=== PATIENT | male | born 1955 | race Caucasian/White ===

== ENCOUNTER → 2016-07-29 | Outpatient (CLI) | payer BC | LOC: RAD 09:54 | PROVIDERS: ATTEND Specialist | DX: C61 Malignant neoplasm of prostate (principal); J44.9 Chronic obstructive pulmonary disease, unspecified | CPT/HCPCS: 71260; 74177 ==

== ENCOUNTER 2016-08-03 11:24 | Emergency (ER) | payer BC ==
[2016-08-03 11:37] VITALS: BP 119/65
--- NOTE | 2016-08-03 11:42 | ER Document Report ---
ED Medical Screen (RME) - General Stated Complaint: LEFT ARM PAIN Mode of Arrival: Ambulatory Information source: Patient Notes: Patient complains of left upper extremity pain for the past 2 days. Patient denies any chest pain, coughing, or cold symptoms. Patient denies any injury to left upper extremity. hx: Hypertension, with stenting I have greeted and performed a rapid initial assessment of this patient. A comprehensive ED assessment and evaluation of the patient, analysis of test results and completion of the medical decision making process will be conducted by additional ED providers. TRAVEL OUTSIDE OF THE [place] IN LAST 30 DAYS: No - Related Data Allergies/Adverse Reactions: Penicillins Allergy (Verified 08/03/16 11:37) Past Medical History - Past Medical History Cardiac Medical History: Reports: Hx Coronary Artery Disease, Hx Hypertension Pulmonary Medical History: Reports: Hx COPD Neurological Medical History: Denies: Hx Seizures Malignancy Medical History: Reports Hx Prostate Cancer - Prostate cancer discovered last year, currently in observation status only GI Medical History: Reports: Hx Gastroesophageal Reflux Disease Past Surgical History: Reports: Hx Orthopedic Surgery - R knee, R wrist, Hx Tonsillectomy - Immunizations Immunizations up to date: Yes Hx Diphtheria, Pertussis, Tetanus Vaccination: Yes Physical Exam - Vital signs Vitals: Temp Pulse Resp BP 98.0 F 74 22 H 119/65 08/03/16 11:35 08/03/16 11:35 08/03/16 11:35 08/03/16 11:35 - Extremities General upper extremity: Tender - Left upper extremity Course - Vital Signs Vital signs: Temp Pulse Resp BP Pulse Ox 98.0 F 74 22 H 119/65 08/03/16 11:35 08/03/16 11:35 08/03/16 11:35 08/03/16 11:35
--- NOTE | 2016-08-03 13:12 | ER Document Report ---
ED General - General Chief Complaint: Arm Pain Stated Complaint: LEFT ARM PAIN Time seen by provider: 13:07 Mode of Arrival: Ambulatory Information source: Patient Notes: 60-year-old male with 2 day history of intermittent pain numbness and weakness involving the left wrist and hand. He denies history of injury. He denies prior history of symptoms like this. He denies any pain numbness or weakness proximal to the wrist. Reports an occasional burning sensation to the ulnar side of the left forearm over the past 2 days as well. The patient reports having had an LAD stent placed this past summer and has had chest pain shortness breath and dyspnea on exertion since November. He doesn't think the stent placement change that but those symptoms have not worsened recently and are not bothering him at the moment. He reports he is supposed to have a repeat cardiac catheterization in [place] with Dr. Bernal in 3 days because of his persistent chest pain and shortness of breath. He denies fever, chills, nausea , vomiting, diaphoresis, hematemesis, hematochezia, melena, dysuria, abdominal pain, or back pain. He denies any pain to the neck. He denies any pain numbness weakness to his other extremities. Patient reports this appearance of swelling to the left wrist and hand compared to the right it's also been present for 2 days Physical Exam: General: Alert, appears well. HEENT: Normocephalic. Atraumatic. PERRLA. Extraocular movements intact. Oropharynx clear. Neck: Supple. Non-tender. Good range of motion without discomfort palpation neck does not produce any discomfort Respiratory: No respiratory distress. Clear and equal breath sounds bilaterally. Nontender to palpation Cardiovascular: Regular rate and rhythm. Abdominal: Normal Inspection. Soft, non-tender. No distension. Normal Bowel Sounds. Back: Non-tender. No deformity or step off. Extremities: Moves all four extremities. Right upper extremity unremarkable. Left upper extremity has full active range of motion in all joints. Range of motion testing at the shoulder and elbow does not produce any discomfort. Patient has superficial ecchymoses diffusely to both upper extremities there is no palpable deformity or tenderness in the area of the left forearm wrist or hand. Patient reports decreased light touch sensation in all 5 fingers and thumb brisk cap refill is present all fingers and he has 2+ radial and ulnar pulses Lower extremities warm 2+ pulses of cyanosis no edema no Homans sign Neurological: Mentating clearly speech clear clinical account liaison strength 4 out of 5 to the left upper extremity compared to 5 out of 5 on the right but motor function to the left upper extremity proximal to the wrist is 5 out of 5. Both lower extremities are 5 out of 5 and equal bilaterally he reports decreased light touch sensation diffusely to the hand and wrist compared to the right but no decreased sensation proximal to that. Psychological: Normal affect. Normal Mood. Skin: Warm. Dry. Normal color. TRAVEL OUTSIDE OF THE [place] IN LAST 30 DAYS: No - Related Data Allergies/Adverse Reactions: Penicillins Allergy (Verified 08/03/16 11:37) Past Medical History - General Information source: Patient - Social History Smoking Status: Never Smoker Chew tobacco use (# tins/day): No Frequency of alcohol use: None Drug Abuse: None Family History: CAD Patient has suicidal ideation: No Patient has homicidal ideation: No - Past Medical History Cardiac Medical History: Reports: Hx Coronary Artery Disease, Hx Hypertension Pulmonary Medical History: Reports: Hx COPD Neurological Medical History: Denies: Hx Seizures Renal/ Medical History: Denies: Hx Peritoneal Dialysis Malignancy Medical History: Reports Hx Prostate Cancer - Prostate cancer discovered last year, currently in observation status only GI Medical History: Reports: Hx Gastroesophageal Reflux Disease Past Surgical History: Reports: Hx Orthopedic Surgery - R knee, R wrist, Hx Tonsillectomy - Immunizations Immunizations up to date: Yes Hx Diphtheria, Pertussis, Tetanus Vaccination: Yes Review of Systems - Review of Systems Constitutional: See HPI EENT: denies: Ear pain, Throat pain Cardiovascular: See HPI Respiratory: See HPI Gastrointestinal: See HPI Genitourinary: denies: Burning, Dysuria Musculoskeletal: denies: Back pain, Muscle pain Hematologic/Lymphatic: denies: Swollen glands Neurological/Psychological: See HPI Physical Exam - Vital signs Vitals: Temp Pulse Resp BP 98.0 F 74 22 H 119/65 08/03/16 11:35 08/03/16 11:35 08/03/16 11:35 08/03/16 11:35 Course - Re-evaluation Re-evalutation: 08/03/16 14:50 Patient had an examination most consistent with a peripheral neuropathy and noted for vascular compromise to the left upper extremity. He is also claimed that chest pain or shortness of breath but reports those are not new or different symptoms and is already scheduled to have follow-up catheterization with heart center in [place] in 3 days. I did not believe he requires admission for cardiac etiologies or for his left hand discomfort but prior to obtaining blood tests or discussion with him about the above findings the patient chose to leave the emergency department. The patient at time of evaluation by this provider was alert mentating clearly incompetent to choose to refuse further care and had no grounds to hold him against his will to allow discussion of his findings. - Vital Signs Vital signs: Temp Pulse Resp BP Pulse Ox 98.0 F 74 23 H 119/65 96 08/03/16 11:35 08/03/16 11:35 08/03/16 13:12 08/03/16 11:35 08/03/16 13:12 - Diagnostic Test Radiology reviewed: Image reviewed, Reports reviewed Radiology results interpreted by me: 08/03/16 14:50 Venous Doppler read as negative for DVT to left upper extremity - EKG Interpretation by Me Additional EKG results interpreted by me: 08/03/16 13:11 EKG reviewed by myself sinus rhythm at 69 no acute changes no significant change from 04/30/2016 08/03/16 14:49 Discharge - Discharge Clinical Impression: Coronary artery disease Qualifiers: Coronary Disease-Associated Artery/Lesion type: unspecified vessel or lesion type [place] vs. transplanted heart: [place] heart Associated angina: angina presence unspecified Qualified Code(s): I25.10 - Atherosclerotic heart disease of [place] coronary artery without angina pectoris Peripheral neuropathy Qualifiers: Peripheral neuropathy type: mononeuropathy, unspecified Qualified Code(s): G58.9 - Mononeuropathy, unspecified Disposition: ELOPED
--- NOTE | 2016-08-03 16:28 | EKG REPORT ---
SEVERITY:- NORMAL ECG - SINUS RHYTHM : Confirmed by: Derick Cloud MD 03-Aug-2016 16:28:01
== END 2016-08-03 13:55 | disposition left against medical advice (07) ==
LOC: ER 11:24
DX: I25.10 Atherosclerotic heart disease of native coronary artery without angina pectoris (principal); M79.602 Pain in left arm; I10 Essential (primary) hypertension; J44.9 Chronic obstructive pulmonary disease, unspecified; C61 Malignant neoplasm of prostate; K21.9 Gastro-esophageal reflux disease without esophagitis
CPT/HCPCS: 71020; 93005; 93010; 93971; 99281

== ENCOUNTER → 2017-01-31 | Outpatient (CLI) | payer BC ==
--- NOTE | 2017-01-31 11:51 | RADIOLOGY REPORT (SQ) ---
EXAM DESCRIPTION: CHEST PA/LAT COMPLETED DATE/TIME: 01/31/2017 10:27 am REASON FOR STUDY: CHEST PAIN, UNSPECIFIED COMPARISON: 08/03/2016 NUMBER OF VIEWS: Two view. TECHNIQUE: Frontal and lateral radiographic views of the chest acquired. LIMITATIONS: None. FINDINGS: LUNGS AND PLEURA: Hyperinflation most likely related to COPD. MEDIASTINUM AND HILAR STRUCTURES: No masses or contour abnormalities. HEART AND VASCULATURE: Heart normal size. No evidence for failure. BONY STRUCTURES: No acute findings. HARDWARE: school bus monitor device superimpose with the left upper chest. OTHER: No other significant finding. IMPRESSION: No acute findings. Hyperinflation possibly related to COPD. TECHNICAL DOCUMENTATION: JOB ID: [id number] [employer]- All Rights Reserved
== END ==
LOC: RAD 10:18
PROVIDERS: ATTEND Physician Assistant
DX: R07.9 Chest pain, unspecified (principal)
CPT/HCPCS: 71020

== ENCOUNTER 2017-03-08 12:58 | Emergency (ER) | payer OTHER, BC ==
[2017-03-08] MEDS ORDERED: DIPH/PERTUSS(ACELL)/TETANUS VAC/PF 0.5 ML SYR (>=10YO) IM ONE (13:30)
--- NOTE | 2017-03-08 13:32 | ER Document Report ---
ED Medical Screen (RME) - General Chief Complaint: Fall Injury Stated Complaint: LEFT HAND INJURY Time Seen by Provider: 03/08/17 13:28 Notes: Patient states he is trying to open the mata on his truck when he fell backwards. In the fall he injured his left hand left shoulder and his right inguinal area. He denies a loss of consciousness. He is unsure when his last tetanus was. TRAVEL OUTSIDE OF THE [place] IN LAST 30 DAYS: No - Related Data Allergies/Adverse Reactions: Penicillins Allergy (Verified 03/08/17 13:20) Past Medical History - Past Medical History Cardiac Medical History: Reports: Hx Coronary Artery Disease, Hx Hypertension Pulmonary Medical History: Reports: Hx COPD Neurological Medical History: Denies: Hx Seizures Renal/ Medical History: Denies: Hx Peritoneal Dialysis Malignancy Medical History: Reports Hx Prostate Cancer - Prostate cancer discovered last year, currently in observation status only GI Medical History: Reports: Hx Gastroesophageal Reflux Disease Past Surgical History: Reports: Hx Orthopedic Surgery - R knee, R wrist, Hx Tonsillectomy - Immunizations Immunizations up to date: Yes Hx Diphtheria, Pertussis, Tetanus Vaccination: Yes Physical Exam - Vital signs Vitals: Temp Pulse Resp BP Pulse Ox 98.3 F 91 16 143/90 H 97 03/08/17 13:09 03/08/17 13:09 03/08/17 13:09 03/08/17 13:09 03/08/17 13:09 Course - Vital Signs Vital signs: Temp Pulse Resp BP Pulse Ox 98.3 F 91 16 143/90 H 97 03/08/17 13:09 03/08/17 13:09 03/08/17 13:09 03/08/17 13:09 03/08/17 13:09
[2017-03-08] MEDS ORDERED: LIDOCAINE 1% INJ-PF (10 MG/ML) 30 ML SDV INJ ONE (14:04)
--- NOTE | 2017-03-08 14:10 | ER Document Report ---
ED Fall - General Chief Complaint: Fall Injury Stated Complaint: LEFT HAND INJURY Time Seen by Provider: 03/08/17 13:28 Mode of Arrival: Ambulatory Information source: Patient Notes: 61-year-old male presents to ED for pain in his right groin left shoulder and left hand after he tried to open his truck door and fell backwards landing on the gravel. He denies any loss of consciousness. He is unsure of his last tetanus shot and one was ordered in pit area. TRAVEL OUTSIDE OF THE [place] IN LAST 30 DAYS: No - HPI Occurred: Just prior to arrival Context: Tripped Associated symptoms: None Location of injury/pain: Hand, Hip, Shoulder Quality of pain: Sharp Severity: Moderate Pain Level: 3 - Related data Allergies/Adverse Reactions: Penicillins Allergy (Verified 03/08/17 13:20) Past Medical History - General Information source: Patient - Social History Smoking Status: Former Smoker Cigarette use (# per day): No Chew tobacco use (# tins/day): No Smoking Education Provided: No Frequency of alcohol use: Occasional Drug Abuse: None Occupation: driver/refuse collector Lives with: Spouse/Significant other Family History: CAD, CVA, DM, Hyperlipidemia, Hypertension, Malignancy Patient has suicidal ideation: No Patient has homicidal ideation: No - Past Medical History Cardiac Medical History: Reports: Hx Coronary Artery Disease, Hx Hypertension Pulmonary Medical History: Reports: Hx Bronchitis, Hx COPD EENT Medical History: Reports: None Neurological Medical History: Reports: None Endocrine Medical History: Reports: None Renal/ Medical History: Reports: None Malignancy Medical History: Reports Hx Prostate Cancer - Prostate cancer discovered last year, currently in observation status only GI Medical History: Reports: Hx Diverticulitis, Hx Gastroesophageal Reflux Disease, Hx Colonoscopy, Hx Endoscopy Musculoskeltal Medical History: Reports Hx Arthritis, Reports Hx Musculoskeletal Deformity, Reports Hx Musculoskeletal Trauma Skin Medical History: Reports None Psychiatric Medical History: Reports: None Traumatic Medical History: Reports: None Infectious Medical History: Reports: None Past Surgical History: Reports: Hx Orthopedic Surgery - R knee torn ligaments and meniscus, R wrist ganglion cyst, Hx Tonsillectomy - Immunizations Immunizations up to date: Yes Hx Diphtheria, Pertussis, Tetanus Vaccination: Yes - 03/08/17 Review of Systems - Review of Systems Constitutional: No symptoms reported EENT: No symptoms reported Cardiovascular: No symptoms reported Respiratory: No symptoms reported Gastrointestinal: No symptoms reported Genitourinary: No symptoms reported Male Genitourinary: No symptoms reported Musculoskeletal: No symptoms reported Skin: No symptoms reported Hematologic/Lymphatic: No symptoms reported Neurological/Psychological: No symptoms reported -: Yes All other systems reviewed and negative Physical Exam - Vital signs Vitals: Temp Pulse Resp BP Pulse Ox 98.3 F 91 16 143/90 H 97 03/08/17 13:09 03/08/17 13:09 03/08/17 13:09 03/08/17 13:09 03/08/17 13:09 Interpretation: Normal - General General appearance: Appears well, Alert - HEENT Head: Normocephalic, Atraumatic Eyes: Normal Pupils: PERRL - Respiratory Respiratory status: No respiratory distress Chest status: Nontender Breath sounds: Normal Chest palpation: Normal - Cardiovascular Rhythm: Regular Heart sounds: Normal auscultation Murmur: No - Abdominal Inspection: Normal Distension: No distension Bowel sounds: Normal Tenderness: Tender - right lower quadrant tender to palpation. No peritoneal signs Organomegaly: No organomegaly. No: Hepatomegaly, Splenomegaly, Mass - Back Back: Normal, Nontender - Extremities General upper extremity: Normal color, Normal temperature General lower extremity: Normal inspection, Normal color, Normal temperature, Normal weight bearing. No: Ramiro's sign Shoulder: Tender, Limited ROM - pain with range of motion Hand: Laceration - left hand, No evidence of human bite, No evidence of FB Hip: Tender, Pain with ROM. No: Unable to bear weight Thigh: Tender - Neurological Neuro grossly intact: Yes Cognition: Normal Orientation: AAOx4 Cesario Coma Scale Eye Opening: Spontaneous [place]ario Coma Scale Verbal: Oriented [place] Coma Scale Motor: Obeys Commands Cesario Coma Scale Total: 15 Speech: Normal Motor strength normal: LUE, RUE, LLE, RLE Sensory: Normal - Psychological Associated symptoms: Normal affect, Normal mood - Skin Skin Temperature: Warm Skin Moisture: Dry Skin Color: Normal Course - Re-evaluation Re-evalutation: 03/08/17 18:42 Discussed assessment and history with Dr Montenegro after suturing his hands the patient developed worse pain in his right thigh and abdomen pelvis when trying to sit. Dr. Montenegro came over and assessed the patient and stated that she get a CT abdomen pelvis with IV contrast this was completed. No acute injuries noted on the CT but the appendix was not visualized and patient's tenderness is to the right lower quadrant. He also had a slight elevation in his WBCs. I had the doctor come and reevaluate the patient due to these findings. Dr Montenegro stated that it would be okay to send the patient home he reviewed signs and symptoms of appendicitis and what to return to the ED for. Will discharge patient home with a prescription for Percocet due to pain. Patient was treated with ibuprofen in the ED his fingers were sutured and a sling was applied to his left shoulder. Patient to follow-up with orthopedics. - Vital Signs Vital signs: Temp Pulse Resp BP Pulse Ox 97.7 F 65 16 128/71 H 97 03/08/17 18:23 03/08/17 18:23 03/08/17 18:23 03/08/17 18:23 03/08/17 18:23 - Laboratory Result Diagrams: 03/08/17 16:20 03/08/17 16:20 Laboratory results interpreted by me: 03/08/17 03/08/17 16:20 16:20 WBC 13.5 H RDW 15.5 H Seg Neutrophils % 82.4 H Lymphocytes % 10.9 L Absolute Neutrophils 11.1 H BUN 23 H Glucose 134 H - Diagnostic Test Radiology reviewed: Image reviewed, Reports reviewed Procedures - Immobilization Left Shoulder Time completed: 18:49 Immobilizer type: Sling Performed by: PCT Post-Proc Neuro Vasc Exam: Normal Alignment checked and good: Yes - Laceration/Wound Repair Left Finger 3rd digit Wound length (cm): 4 Wound's Depth, Shape: Irregular, Flap Laceration pre-procedure: Sterile PPE donned, Sterile drapes applied, Other - surgical scrub Anesthetic type: 1% Lidocaine Volume Anesthetic (mLs): 4 Wound explored: Contaminated, Foreign body removed Irrigated w/ Saline (mLs): 250 Wound Repaired With: Sutures Suture Size/Type: 4:0, Ethilon Number of Sutures: 6 Layer Closure?: No Post-procedure wound care: Sterile dressing applied Post-procedure NV exam normal: Yes Complications: No Left Finger 4th digit Wound length (cm): 5 Wound's Depth, Shape: Irregular, Flap Laceration pre-procedure: Sterile PPE donned, Sterile drapes applied, Other - surgical scrub Anesthetic type: 1% Lidocaine Volume Anesthetic (mLs): 4 Wound explored: Contaminated, Foreign body removed Irrigated w/ Saline (mLs): 250 Wound Repaired With: Sutures Suture Size/Type: 4:0, Ethilon Number of Sutures: 6 Layer Closure?: No Post-procedure wound care: Sterile dressing applied Post-procedure NV exam normal: Yes Complications: No Discharge - Discharge Clinical Impression: Right groin pain, laceration left 3rd finger, laceration 4th left finger, Right lower quadrant abdominal pain Fall Qualifiers: Encounter type: initial encounter Qualified Code(s): W19.XXXA - Unspecified fall, initial encounter Injury of left shoulder Qualifiers: Encounter type: initial encounter Qualified Code(s): S49.92XA - Unspecified injury of left shoulder and upper arm, initial encounter Condition: Stable Disposition: HOME, SELF-CARE Instructions: Observation for Appendicitis (OM) Additional Instructions: MUSCLE STRAIN: You have strained a muscle -- torn the fibers within the muscle. This often occurs with strenuous exertion, or during an injury that suddenly stretches the muscle. The seriousness of a strain varies. Some strains heal within days, others cause problems for months. X-rays cannot show a muscle strain. X-rays are taken only if symptoms suggest that a fracture could be present. The usual treatment of a muscle strain is rest and ice packs. Sometimes, a sling, splint, or crutches may be necessary to rest the muscle. The muscle can be used again once pain subsides. Severe strains require a special exercise and stretching program to prevent permanent stiffness and disability. Your doctor will advise you if this will be necessary. Call the doctor immediately if pain or swelling becomes severe, or if numbness or discoloration develop. Shoulder Injury You have injured your shoulder. This usually results from stretching or tearing of the tendons during trauma. Time and protection are required in order to heal properly. Many injuries are quite disabling, and should be taken seriously. Initial treatment includes cold packs and a sling to rest the shoulder. The physician has assessed the seriousness of your injury, and has outlined a treatment plan. Understand that this treatment may change, depending on how you progress. If a re-examination was recommended, it is important that you follow up as instructed. Some shoulder injuries (such as partial tear of the rotator cuff) are only suspected after you've failed to improve. Call us if there's severe pain, numbness, or loss of function. Hand Laceration A laceration on the hand can present special problems. It may be difficult to keep the wound dry. Motion of the fingers can disturb the healing edges. Your work may involve exposure to damaging chemicals or water. Keep the wound clean and dry. If you can't keep the cut dry, undisturbed, and free of chemical exposure, please discuss this with the doctor. If any water or chemical gets onto the dressing, remove it, blot the wound dry, then apply a fresh bandage. Dressings should be changed every day. If you feel the stitches pulling as you move the hand, a splint or other form of protection is needed. If any signs of infection occur (swelling, redness, increasing tenderness, red streaks, tender lumps in the armpit, or fever), see the doctor immediately. CONTUSION: Your injury has resulted in a contusion -- a crushing of the deep tissues. No injury to important structures was detected during the physician's exam. Contusions vary in the amount of pain they cause, and in the length of time required for healing. Typically, the area will become bruised, and will remain painful to touch for two or three weeks. However, most patients are back to working and playing within a few days. After the initial period of rest and cold-packs, your symptoms (together with the doctor's recommendations) will determine how rapidly you can get back to full activity. Usually this means "do what feels okay, but don't do things that hurt." If re-examination was recommended, it's important to follow up as instructed. Call the doctor or return any time if pain increases, if swelling becomes severe, if you develop numbness or weakness in an injured extremity, or if any other alarming symptoms occur. LOW BACK PAIN: Three out of every four people will have an episode of disabling back pain during their lifetime. Most commonly the pain is due to straining of the muscles and ligaments in the low back. Usual treatment includes: (1) Rest on a firm surface. Avoid lying on your stomach. (2) Ice pack the painful area. After a few days, gentle heat may be used intermittently to relax the area, or ice packs can be continued. (3) Medication may be needed -- muscle relaxers and antiinflammatory medicines are commonly used. (4) As the back improves, exercises are prescribed to strengthen the back and abdominal muscles. Your doctor will advise you on the proper care for your back at each stage in your recovery. You may be better in a few days -- or healing may take several weeks. If new symptoms of a "herniated disc" (radiation of pain, numbness, or tingling down the back of the leg or weakness in the leg) occur, you should be re-examined. Further testing may be necessary. USE OF TYLENOL (ACETAMINOPHEN): Acetaminophen may be taken for pain relief or fever control. It's much safer than aspirin, offering a wider range of "safe" dosages. It is safe during . Some brand names are Tylenol, Panadol, Datril, Anacin 3, Tempra, and Liquiprin. Acetaminophen can be repeated every four hours. The following are maximum recommended dosages: WEIGHT Dose Drops Elixir Chewable( 80mg) (LBS.) drprs=droppers tsp=teaspoon 6 40 mg 0.4 ml (1/2) 6-11 80 mg 0.8 ml (full) tsp 1 tab 12-16 120 mg 1 1/2 drprs 3/4 tsp 1 1/2 tabs 17-23 160 mg 2 drprs 1 tsp 2 tabs 24-30 240 mg 3 drprs 1 1/2 tsp 3 tabs 30-35 320 mg 2 tsp 4 tabs 36-41 360 mg 2 1/4 tsp 4 1/2 tabs 42-47 400 mg 2 1/2 tsp 5 tabs 48-53 480 mg 3 tsp 6 tabs 54-59 520 mg 3 1/4 tsp 6 1/2 tabs 60-64 560 mg 3 1/2 tsp 7 tabs 65-70 600 mg 3 3/4 tsp 7 1/2 tabs 71-76 640 mg 4 tsp 8 tabs 77-82 720 mg 4 1/2 tsp 9 tabs 83-88 800 mg 5 tsp 10 tabs >89 pounds or adults 650 mg to 900 mg Acetaminophen can be repeated every four hours. Maximum dose not to exceed 4000 mg a day. These maximum recommended dosages are slightly higher than the dosages written on the product container, but these dosages are very safe and below the toxic dosage for acetaminophen. TETANUS IMMUNIZATION GIVEN: You have been given an immunization against tetanus. Please record this in your records. In general, a booster is needed only once every 10 years. The tetanus shot protects against tetanus or "lockjaw," which is a complication of certain wound infections (the tetanus shot cannot protect against the actual infection). The immunization site may become warm and red due to local reaction. If this occurs, apply warm compresses and take aspirin or ibuprofen to reduce inflammation and discomfort. Return for evaluation if the reaction becomes severe. ICE PACKS: Apply ice packs frequently against the painful area. Many different schedules are recommended, such as "20 minutes on, 20 minutes off" or "one hour ice, two hours rest." If you need to work, you may need to go longer between ice treatments. You should plan to have the area ice packed AT LEAST one fourth of the time. The ice should be applied over the wrap, tape, or splint, or over a layer of cloth -- not directly against the skin. Some ice bags have a built-in cloth and can be put directly on the skin. WARM PACKS: After approximately two days, apply gentle heat (such as a heating pad or hot water bottle) for about 20 to 30 minutes about every two hours -- at least four times daily. Warmth and elevation will help you make a more rapid recovery , and will ease the pain considerably. Do not use HOT heat, and never apply heat for longer than 30 minutes. The continuous heat can invisibly damage skin and muscles -- even when no burn is seen on the surface. Damaged muscles can make you MORE sore. ORAL NARCOTIC MEDICATION: You have been given a prescription for pain control. This medication is a narcotic. It's best taken with food, as nausea can result if taken on an empty stomach. Don't operate machinery or drive within six hours of taking this medication. Do not combine this medicine with alcohol, or with any medication which can cause sedation (such as cold tablets or sleeping pills) unless you get permission from the physician. Narcotics tend to cause constipation. If possible, drink plenty of fluids and eat a diet high in fiber and fruits. SOAP CLEANSING: Gently wash the wound daily using a mild soap (like Ivory, Phisoderm, Neutrogena). Use warm water, rubbing gently until all debris, ooze, and crusting have been washed from the wound. Allow to dry briefly (about 10 minutes) after cleaning. Repeat this cleansing at least three times a day for the first two days and then once or twice a day. ANTIBIOTIC OINTMENT PROTECTION: Your wounds are such that dressing them is not practical or optional. After cleansing, you should apply a thin coating of antibiotic ointment ( Bacitracin, not Neosporin) to the wounds at least three times daily. This lessens infection risk, and may decrease the amount of scarring. Use a q-tip or dull butter knife, not your finger, to apply this ointment. Any debris or ooze which builds up in the ointment should be gently rubbed off with a sterile gauze pad. Harder crusting may need to be gently scrubbed off with a clean wash cloth with soap and warm water, perhaps applying a warm, wet wash cloth to the wound for ten minutes first. Development of redness, severe itching, or blistering may mean allergy to the ointment. See the doctor. Cephalexin The antibiotic you've been prescribed is a member of the cephalosporin class. This type of antibiotic covers a wide variety of infections, including those of the skin, lungs, and urinary tract. It's useful for staph infections. This antibiotic is slightly similar to the penicillin family. In rare cases , a person who is allergic to penicillin will also be allergic to this medication. If you have had a severe allergic reaction to penicillin, and have not taken this antibiotic since that time, notify your doctor. Antibiotics which cover many germs ("broad spectrum" antibiotics) are more likely to cause diarrhea or "yeast" infections. Women prone to vaginal yeast problems may suffer an attack after taking this antibiotic. In infants, oral thrush (white spots "stuck" on the cheek) or yeast diaper rash may result. See your doctor if these problems occur. Call at once if you develop itching, hives , shortness of breath, or lightheadedness. ORAL NARCOTIC MEDICATION: You have been given a prescription for pain control. This medication is a narcotic. It's best taken with food, as nausea can result if taken on an empty stomach. Don't operate machinery or drive within six hours of taking this medication. Do not combine this medicine with alcohol, or with any medication which can cause sedation (such as cold tablets or sleeping pills) unless you get permission from the physician. Narcotics tend to cause constipation. If possible, drink plenty of fluids and eat a diet high in fiber and fruits. FOLLOW-UP CARE: Please return in _3____ days for an infection check and dressing change. Your sutures should be removed in __8___ days. To facilitate a timely removal of your sutures, you may return to the Emergency Department at [facility]. You do not need to call for an appointment, but the best time to come in for suture removal is early in the morning. If you have been referred to another physician for follow-up care, call that physicians office for an appointment as you were instructed. If you experience a significant change in your laceration, or if you are concerned there may be an infection (swelling, redness, drainage, increasing tenderness, red streaks, tender lumps in the armpit or groin above the laceration, or fever) , return to the Emergency Department immediately re-evaluation. Prescriptions: Oxycodone HCl/Acetaminophen [Percocet 5-325 mg Tablet] 1 tab PO Q6HP PRN #15 tablet PRN Reason: Cephalexin Monohydrate [Keflex 500 mg Capsule] 500 mg PO Q6H 5 Days capsule Forms: Elevated Blood Pressure, Return to Work Referrals: SANIYA MENDEZ PA-C [Primary Care Provider] - Follow up as needed STACEY CALLAWAY MD [ACTIVE STAFF] - Follow up as needed
--- NOTE | 2017-03-08 14:43 | RADIOLOGY REPORT (SQ) ---
EXAM DESCRIPTION: HAND LEFT 3 VIEWS COMPLETED DATE/TIME: 03/08/2017 2:28 pm REASON FOR STUDY: fall/pain COMPARISON: None. EXAM PARAMETERS: NUMBER OF VIEWS: Three views. TECHNIQUE: AP, lateral and oblique radiographic images acquired of the left hand. LIMITATIONS: None. FINDINGS: MINERALIZATION: Normal. BONES: No acute fracture or dislocation. No worrisome bone lesions. JOINTS: No effusions. SOFT TISSUES: Foreign bodies along the pad of the distal phalanx of the 4th digit in the area of the laceration. There is also a metallic foreign body at the level of the 5th metacarpal, surface. Retu rn body along the pad of the 3rd distal phalanx. OTHER: No other significant finding. IMPRESSION: Multiples radiodensities in or on soft tissues including the distal 3rd and 4th phalange al pads and palmar surface of the 5th metacarpal. No fracture. TECHNICAL DOCUMENTATION: JOB ID: [id number] [employer]- All Rights Reserved
--- NOTE | 2017-03-08 14:43 | RADIOLOGY REPORT (SQ) ---
EXAM DESCRIPTION: PELVIS AP COMPLETED DATE/TIME: 03/08/2017 2:28 pm REASON FOR STUDY: fall/pain COMPARISON: None. NUMBER OF VIEWS: One view TECHNIQUE: AP Pelvis LIMITATIONS: None. FINDINGS: MINERALIZATION: Normal. HIPS: No acute fracture or dislocation. No worrisome bone lesions. PELVIS AND SACRUM: No acute fracture or dislocation. No worrisome bone lesions. PUBIS AND ISCHIUM: No acute fracture. LOWER LUMBAR SPINE: No significant findings as visualized. SOFT TISSUES: No findings. OTHER: No other significant finding. IMPRESSION: NEGATIVE STUDY OF THE PELVIS. TECHNICAL DOCUMENTATION: JOB ID: [id number] [employer]- All Rights Reserved
--- NOTE | 2017-03-08 14:44 | RADIOLOGY REPORT (SQ) ---
EXAM DESCRIPTION: SHOULDER LEFT 2 OR MORE VIEWS COMPLETED DATE/TIME: 03/08/2017 2:28 pm REASON FOR STUDY: fall/pain COMPARISON: None. NUMBER OF VIEWS: Three views. TECHNIQUE: Internal rotation, external rotation, and Y view images acquired of the left shoulder. LIMITATIONS: None. FINDINGS: MINERALIZATION: Normal. BONES: No acute fracture or dislocation. No worrisome bone lesions. Cystic degenerative changes hum eral head. JOINTS: No dislocation. VISUALIZED LUNGS AND RIBS: No pneumothorax. No rib fracture. SOFT TISSUES: No radiopaque foreign body. OTHER: No other significant finding. IMPRESSION: NEGATIVE STUDY OF THE LEFT SHOULDER. NO RADIOGRAPHIC EVIDENCE OF ACUTE INJURY. TECHNICAL DOCUMENTATION: JOB ID: [id number] [employer]- All Rights Reserved
[2017-03-08] MEDS ORDERED: IBUPROFEN 800 MG TABLET PO ONE (14:48)
[2017-03-08 16:38] LABS: ABSOLUTE BASOPHILS # (AUTO) 0.1 10^3/uL (0.0-0.2); ABSOLUTE LYMPHOCYTES (AUTO) 1.5 10^3/uL (0.5-4.7); ABSOLUTE MONOCYTES (AUTO) 0.7 10^3/uL (0.1-1.4); ABSOLUTE NEUT (AUTO) 11.1 10^3/uL (1.7-8.2); BASOPHILS % (AUTO) 1.1 % (0-2); EOSINOPHILS % (AUTO) 0.1 % (0-6); HEMATOCRIT 43.5 % (37.9-51.0); HEMOGLOBIN 14.4 g/dL (13.5-17.0); HGB HCT DIFFERENCE -0.3; LYMPHOCYTES % (AUTO) 10.9 % (13-45); MEAN CORPUSCULAR HGB CONC 33.1 g/dL (32.0-36.0); MEAN CORPUSCULAR VOLUME 87 fl (80-97); MONOCYTES % (AUTO) 5.5 % (3-13); RED BLOOD COUNT 4.98 10^6/uL (4.35-5.55); RED CELL DISTRIBUTION WIDTH 15.5 % (11.5-14.0); SEGMENTED NEUTROPHILS % (AUTO) 82.4 % (42-78); WHITE BLOOD COUNT 13.5 10^3/uL (4.0-10.5)
[2017-03-08 17:00] LABS: ANION GAP 10 (5-19); BLOOD UREA NITROGEN 23 mg/dL (7-20); CALCIUM 10.1 mg/dL (8.4-10.2); CARBON DIOXIDE 28 mmol/L (22-30); CHLORIDE 101 mmol/L (98-107); CREATININE RESULT 1.12 mg/dL (0.52-1.25); GLUCOSE 134 mg/dL (75-110); POTASSIUM 4.1 mmol/L (3.6-5.0); SODIUM 139.1 mmol/L (137-145)
--- NOTE | 2017-03-08 18:04 | RADIOLOGY REPORT (SQ) ---
EXAM DESCRIPTION: CT ABD/PELVIS WITH IV ONLY COMPLETED DATE/TIME: 03/08/2017 5:43 pm REASON FOR STUDY: fall pain in right pelvis and abd, need sebastian wind COMPARISON: 07/29/2016 TECHNIQUE: CT scan of the abdomen and pelvis performed using helical scanning technique with dynamic intravenous contrast injection. No oral contrast. Images reviewed with lung, soft tissue, and bone windows. Reconstructed coronal and sagittal MPR images reviewed. Delayed images for evaluation of the urinary system also acquired. All images stored on PACS. All CT scanners at this facility use dose modulation, iterative reconstruction, and/or weight based d osing when appropriate to reduce radiation dose to as low as reasonably achievable (ALARA). [facility]: Dose Right [facility]: CareDose [facility]: Dose Right [facility]: Teradose 4D [facility]: ProtectWise CONTRAST TYPE AND DOSE: contrast/concentration: Isovue 370.00 mg/ml; Total Contrast Delivered: 100.0 ml; Total Saline Delivered: 50.0 ml RENAL FUNCTION: Creatinine measures 1.12 RADIATION DOSE: Up-to-date CT equipment and radiation dose reduction techniques were employed. CTDIv ol: 20.5 - 21.1 mGy. DLP: 2218 mGy-cm.. LIMITATIONS: None. FINDINGS: LOWER CHEST: No significant findings. No nodules or infiltrates. LIVER: Normal size. No masses. No dilated ducts. SPLEEN: Normal size. No focal lesions. PANCREAS: No masses. No significant calcifications. No adjacent inflammation or peripancreatic fluid collections. Pancreatic duct not dilated. GALLBLADDER: No identified stones by CT criteria. No inflammatory changes to suggest cholecystitis. ADRENAL GLANDS: No significant masses or asymmetry. RIGHT KIDNEY AND URETER: No solid masses. No significant calcifications. No hydronephrosis or hyd roureter. LEFT KIDNEY AND URETER: No solid masses. No significant calcifications. No hydronephrosis or hydr oureter. AORTA AND VESSELS: No aneurysm. No dissection. Renal arteries, SMA, celiac without stenosis. RETROPERITONEUM: No retroperitoneal adenopathy, hemorrhage or masses. BOWEL AND PERITONEAL CAVITY: No masses or inflammatory changes. No free fluid or peritoneal masses. APPENDIX: Not visualized. PELVIS: No mass. No free fluid. Normal bladder. ABDOMINAL WALL: No masses. Tiny fat containing periumbilical hernia. BONES: Stable degenerative change of the visualized spine. Stable tiny sclerotic lesions seen within the left iliac bone series 601, image 70 and right acetabulum series 601, image 70 presumably repres enting benign bone islands. OTHER: No other significant finding. IMPRESSION: NO SIGNIFICANT OR ACUTE FINDING IN THE ABDOMEN OR PELVIS ON CT SCAN WITH IV CONTRAST. N O SIGNIFICANT CHANGE FROM PRIOR STUDY. TECHNICAL DOCUMENTATION: JOB ID: [id number] Quality ID # [id number]: Final reports with documentation of one or more dose reduction techniques (e.g., Au tomated exposure control, adjustment of the mA and/or kV according to patient size, use of iterative reconstruction technique) 2010 [employer]- All Rights Reserved
[2017-03-08 18:24] VITALS: BP 128/71
== END 2017-03-08 19:32 | disposition home or self-care (01) ==
LOC: ER 12:58
PROC: 0HQGXZZ Repair Left Hand Skin, External Approach (ICD-10-PCS; principal; 2017-03-08)
DX: S61.223A Laceration with foreign body of left middle finger without damage to nail, initial encounter (principal); S61.225A Laceration with foreign body of left ring finger without damage to nail, initial encounter; S49.92XA Unspecified injury of left shoulder and upper arm, initial encounter; W19.XXXA Unspecified fall, initial encounter; M25.512 Pain in left shoulder; M79.642 Pain in left hand; R10.2 Pelvic and perineal pain; M79.651 Pain in right thigh; R10.31 Right lower quadrant pain; R10.813 Right lower quadrant abdominal tenderness; D72.829 Elevated white blood cell count, unspecified; I10 Essential (primary) hypertension; I25.10 Atherosclerotic heart disease of native coronary artery without angina pectoris; Z88.0 Allergy status to penicillin; Z87.891 Personal history of nicotine dependence; Z23 Encounter for immunization; Z85.46 Personal history of malignant neoplasm of prostate
CPT/HCPCS: 99284; 90471; 36415; 85025; 80048; 73130; 72170; 73030; 74177; 90715; 12004; J3490

== ENCOUNTER → 2017-03-22 | Outpatient (CLI) | payer BC ==
--- NOTE | 2017-03-22 10:27 | RADIOLOGY REPORT (SQ) ---
EXAM DESCRIPTION: U/S ABDOMEN COMPLETE W/O DOP COMPLETED DATE/TIME: 03/22/2017 9:55 am REASON FOR STUDY: UPPER ABD PAIN (R10.10) R10.10 UPPER ABDOMINAL PAIN, UNSPECIFIED COMPARISON: CT abdomen pelvis dated 03/08/2017 TECHNIQUE: Dynamic and static grayscale images acquired of the abdomen and recorded on PACS. Additio nal selected color Doppler and spectral images recorded. LIMITATIONS: None. FINDINGS: PANCREAS: No masses. Visualized pancreatic duct normal caliber. LIVER: Echotexture is coarse with increased echogenicity consistent with fatty infiltration. LIVER VASCULATURE: Normal directional flow of the main portal vein and hepatic veins. GALLBLADDER: No stones. Normal wall thickness. No pericholecystic fluid. ULTRASOUND-DETECTED GABRIEL'S SIGN: Negative. INTRAHEPATIC DUCTS AND COMMON DUCT: CBD and intrahepatic ducts normal caliber. No filling defects. INFERIOR VENA CAVA: Normal flow. AORTA: No aneurysm. RIGHT KIDNEY: Normal size. Normal echogenicity. No solid or suspicious masses. No hydronephrosis. No calcifications. LEFT KIDNEY: Normal size. Normal echogenicity. No solid or suspicious masses. No hydronephrosis. No calcifications. SPLEEN:Normal size. No solid masses. PERITONEAL AND PLEURAL SPACES: No ascites or effusions. OTHER: No other significant finding. IMPRESSION: FATTY LIVER. NO OTHER SIGNIFICANT FINDING. TECHNICAL DOCUMENTATION: JOB ID: [id number]- All Rights Reserved
== END ==
LOC: RAD 09:00
PROVIDERS: ATTEND Physician Assistant
DX: R10.10 Upper abdominal pain, unspecified (principal)
CPT/HCPCS: 76700

== ENCOUNTER 2017-11-15 13:58 | Inpatient (IN) | payer BC ==
--- NOTE | 2017-11-15 14:28 | EKG REPORT ---
SEVERITY:- NORMAL ECG - SINUS RHYTHM : Confirmed by: Art Hannon 15-Nov-2017 14:27:31
--- NOTE | 2017-11-15 14:31 | ER Document Report ---
ED Medical Screen (RME) - General Chief Complaint: Shortness Of Breath Stated Complaint: CHEST PAIN, SHORTNESS OF BREATH Time Seen by Provider: 11/15/17 14:29 Notes: Patient is a 61-year-old male, past medical history COPD, CAD w/ stent, Hx of PE (no longer on blood thinners), presents with 1 week of increasing cough, wheezing and shortness of breath. He is now having some substernal chest pressure when he coughs. PE: Diffuse wheezing, mild tachypnea, tachycardia I have greeted and performed a rapid initial assessment of this patient. A comprehensive ED assessment and evaluation of the patient, analysis of test results and completion of the medical decision making process will be conducted by additional ED providers. TRAVEL OUTSIDE OF THE [place] IN LAST 30 DAYS: Yes COUNTRY TRAVELED TO/FROM: [place] - Related Data Allergies/Adverse Reactions: Penicillins Allergy (Verified 11/15/17 13:59) Past Medical History - Past Medical History Cardiac Medical History: Reports: Hx Coronary Artery Disease, Hx Hypertension Pulmonary Medical History: Reports: Hx Bronchitis, Hx COPD Neurological Medical History: Denies: Hx Seizures Renal/ Medical History: Denies: Hx Peritoneal Dialysis Malignancy Medical History: Reports Hx Prostate Cancer - Prostate cancer discovered last year, currently in observation status only GI Medical History: Reports: Hx Diverticulitis, Hx Gastroesophageal Reflux Disease, Hx Colonoscopy, Hx Endoscopy Musculoskeltal Medical History: Reports Hx Arthritis, Reports Hx Musculoskeletal Deformity, Reports Hx Musculoskeletal Trauma Past Surgical History: Reports: Hx Orthopedic Surgery - R knee, R wrist, Hx Tonsillectomy - Immunizations Immunizations up to date: Yes Hx Diphtheria, Pertussis, Tetanus Vaccination: Yes Physical Exam - Vital signs Vitals: Temp Pulse Resp BP Pulse Ox 98.1 F 106 H 24 H 136/90 H 96 11/15/17 14:01 11/15/17 14:01 11/15/17 14:01 11/15/17 14:01 11/15/17 14:01 Course - Vital Signs Vital signs: Temp Pulse Resp BP Pulse Ox 98.1 F 106 H 24 H 136/90 H 96 11/15/17 14:01 11/15/17 14:01 11/15/17 14:01 11/15/17 14:01 11/15/17 14:01
[2017-11-15] MEDS ORDERED: METHYLPREDNISOLONE INJ 125 MG/2 ML SDV IV ONE (14:52)
[2017-11-15] MEDS ORDERED: IPRATROPIUM/ALBUTEROL 0.5-2.5 MG/3 ML AMPUL NEB ONE ×2 (14:52→16:23)
--- NOTE | 2017-11-15 15:16 | RADIOLOGY REPORT (SQ) ---
EXAM DESCRIPTION: CHEST 2 VIEWS COMPLETED DATE/TIME: 11/15/2017 2:59 pm REASON FOR STUDY: SOB, chest pain COMPARISON: Chest films 01/31/2017, 08/03/2016 CT abdomen pelvis 07/29/2016 EXAM PARAMETERS: NUMBER OF VIEWS: two views TECHNIQUE: Digital Frontal and Lateral radiographic views of the chest acquired. RADIATION DOSE: NA LIMITATIONS: none FINDINGS: LUNGS AND PLEURA: No opacities, masses or pneumothorax. No pleural effusion. MEDIASTINUM AND HILAR STRUCTURES: No masses or contour abnormalities. HEART AND VASCULAR STRUCTURES: Heart normal size. No evidence for failure. BONES: No acute findings. HARDWARE: Old left shoulder replacement. Bones osteoporotic with diffuse thoracic spine degenerative disc changes OTHER: No other significant finding. IMPRESSION: No acute cardiopulmonary findings TECHNICAL DOCUMENTATION: JOB ID: [id number] [employer]- All Rights Reserved Reading location - IP/workstation name: [email or web address]
--- NOTE | 2017-11-15 15:17 | ER Document Report ---
ED General - General Chief Complaint: Shortness Of Breath Stated Complaint: CHEST PAIN, SHORTNESS OF BREATH Time Seen by Provider: 11/15/17 14:29 Mode of Arrival: Ambulatory Information source: Patient Notes: This is a 61-year-old man with a history of coronary artery disease (LAD stent) , CHF, COPD, pulmonary embolism, morbid obesity. Patient presents to the emergency room with progressively worsening shortness of breath and dyspnea on exertion. TRAVEL OUTSIDE OF THE [place] IN LAST 30 DAYS: Yes COUNTRY TRAVELED TO/FROM: cruise - [place] [employer] Onset: Last week Onset/Duration: Gradual Quality of pain: No pain Severity: None Pain Level: Denies Associated symptoms: Shortness of breath. denies: Chest pain, Fever Exacerbated by: Denies Relieved by: Denies Similar symptoms previously: Yes Recently seen / treated by doctor: Yes - Related Data Allergies/Adverse Reactions: Penicillins Allergy (Verified 11/15/17 13:59) Home Medications: paroxetine, pantoprazole, cislcrys, dicolofenac, lasix, metoprolol, spironolactone, atorvastatin, asprin, isosorbide, amitriptyline, b- 12, prednisone, ventolin, anora, simbicort, Cefdinir Past Medical History - General Information source: Patient - Social History Smoking Status: Former Smoker Cigarette use (# per day): No Chew tobacco use (# tins/day): No Frequency of alcohol use: Rare Drug Abuse: None Lives with: Family Family History: CAD Patient has suicidal ideation: No Patient has homicidal ideation: No - Past Medical History Cardiac Medical History: Reports: Hx Coronary Artery Disease, Hx Hypertension Pulmonary Medical History: Reports: Hx Bronchitis, Hx COPD Neurological Medical History: Denies: Hx Seizures Renal/ Medical History: Denies: Hx Peritoneal Dialysis Malignancy Medical History: Reports Hx Prostate Cancer - Prostate cancer discovered last year, currently in observation status only GI Medical History: Reports: Hx Diverticulitis, Hx Gastroesophageal Reflux Disease, Hx Colonoscopy, Hx Endoscopy Musculoskeltal Medical History: Reports Hx Arthritis, Reports Hx Musculoskeletal Deformity, Reports Hx Musculoskeletal Trauma Past Surgical History: Reports: Hx Orthopedic Surgery - R knee, R wrist, Hx Tonsillectomy - Immunizations Immunizations up to date: Yes Hx Diphtheria, Pertussis, Tetanus Vaccination: Yes Review of Systems - Review of Systems Constitutional: denies: Chills, Fever EENT: No symptoms reported Cardiovascular: See HPI Respiratory: See HPI Gastrointestinal: No symptoms reported Genitourinary: No symptoms reported Male Genitourinary: No symptoms reported Musculoskeletal: No symptoms reported Skin: No symptoms reported Hematologic/Lymphatic: No symptoms reported Neurological/Psychological: No symptoms reported Physical Exam - Vital signs Vitals: Temp Pulse Resp BP Pulse Ox 98.1 F 106 H 24 H 136/90 H 96 11/15/17 14:01 11/15/17 14:01 11/15/17 14:01 11/15/17 14:01 11/15/17 14:01 Notes: Physical exam: GENERAL: 31-year-old man, alert and oriented 3, no acute distress HEAD: Atraumatic, normocephalic. EYES: Pupils equal round and reactive to light, extraocular movements intact, sclera anicteric, conjunctiva are normal. ENT: TMs normal, nares patent, oropharynx clear without exudates. Moist mucous membranes. NECK: Normal range of motion, supple without obvious mass or JVD. LUNGS: Bilateral wheezing HEART: Regular rate and rhythm without murmurs, rubs or gallops. ABDOMEN: Soft, normoactive bowel sounds. No tenderness to palpation. No guarding, no rebound. No masses appreciated. EXTREMITIES: Normal range of motion, no pitting or edema. No clubbing or cyanosis. NEUROLOGICAL: Cranial nerves II through XII grossly intact. Normal speech, moving all extremities. PSYCH: Normal mood, normal affect. SKIN: Warm, Dry, normal turgor, no rashes or lesions noted. Course - Re-evaluation Re-evalutation: 11/15/17 17:25 Note: Patient did receive dual nebs and IV Solu-Medrol. His lung exams still reveal diffuse wheezing but he is moving air more easily. He does have a history of pulmonary emboli and a CTA was performed which does not show any pulmonary emboli today. He does have a history of coronary artery disease with an LAD stent. His initial cardiac enzymes are normal. I did discuss the case with the patient's cableman Bradford Paul [phone] to update him on the ER stay. Dr. Paul states that he has The patient twice in the past year or 2. He believes that the symptoms may be due to COPD versus dietary indiscretion. I let them know that we will be admitting the patient for COPD exacerbation, continuing monitoring and cardiac enzymes. He said to call him if there is any problems with the cardiac enzymes. Plan will be to admit for COPD exacerbation, continue cardiac monitoring and cardiac enzymes. 11/15/17 17:34 - Vital Signs Vital signs: Temp Pulse Resp BP Pulse Ox 98.1 F 106 H 24 H 136/90 H 96 11/15/17 14:01 11/15/17 14:01 11/15/17 14:01 11/15/17 14:01 11/15/17 14:01 - Laboratory Result Diagrams: 11/15/17 15:02 11/15/17 15:02 Laboratory results interpreted by me: 11/15/17 11/15/17 15:02 15:02 RBC 5.60 H RDW 16.6 H Seg Neutrophils % 86.1 H Lymphocytes % 6.8 L Potassium 3.5 L Chloride 92 L Carbon Dioxide 32 H BUN 27 H Glucose 235 H Lipase 319.7 H - Diagnostic Test Radiology reviewed: Image reviewed, Reports reviewed - CTA shows no evidence of pulmonary emboli - EKG Interpretation by Me Rate: Normal Rhythm: NSR - EKG shows normal sinus rhythm with a no acute ST-T wave changes Critical Care Note - Critical Care Note Total time excluding time spent on procedures (mins): 60 Discharge - Discharge Clinical Impression: Dyspnea, COPD exacerbation Condition: Stable Disposition: ADMITTED INPATIENT Admitting Provider: Hospitalist - dr spaulding Unit Admitted: Telemetry
[2017-11-15 15:19] LABS: ABSOLUTE LYMPHOCYTES (AUTO) 0.6 10^3/uL (0.5-4.7); ABSOLUTE MONOCYTES (AUTO) 0.5 10^3/uL (0.1-1.4); BASOPHILS % (AUTO) 0.5 % (0-2); EOSINOPHILS % (AUTO) 0.1 % (0-6); HEMATOCRIT 48.3 % (37.9-51.0); HEMOGLOBIN 16.6 g/dL (13.5-17.0); LYMPHOCYTES % (AUTO) 6.8 % (13-45); MEAN CORPUSCULAR HEMOGLOBIN 29.6 pg (27.0-33.4); MEAN CORPUSCULAR HGB CONC 34.3 g/dL (32.0-36.0); MEAN CORPUSCULAR VOLUME 86 fl (80-97); MONOCYTES % (AUTO) 6.5 % (3-13); PLATELET COUNT 201 10^3/uL (150-450); RED CELL DISTRIBUTION WIDTH 16.6 % (11.5-14.0); SEGMENTED NEUTROPHILS % (AUTO) 86.1 % (42-78); TOTAL CELLS COUNTED % (AUTO) 100 %; WHITE BLOOD COUNT 8.2 10^3/uL (4.0-10.5)
[2017-11-15 15:31] LABS: INTERNATIONAL RATION (INR) 0.85; PROTHROMBIN TIME 12.1 SEC (11.4-15.4)
[2017-11-15 15:32] LABS: PARTIAL THROMBOPLASTIN TIME 28.4 SEC (23.5-35.8)
[2017-11-15 15:37] LABS: ALANINE AMINOTRANSFERASE 68 U/L (21-72); ALBUMIN 4.2 g/dL (3.5-5.0); ALKALINE PHOSPHATASE 83 U/L (38-126); ANION GAP 14 (5-19); ASPARTATE AMINO TRANSFERASE 35 U/L (17-59); BILIRUBIN,DIRECT 0.3 mg/dL (0.0-0.4); BILIRUBIN,TOTAL 0.5 mg/dL (0.2-1.3); BLOOD UREA NITROGEN 27 mg/dL (7-20); CALCIUM 9.8 mg/dL (8.4-10.2); CARBON DIOXIDE 32 mmol/L (22-30); CHLORIDE 92 mmol/L (98-107); CREATINE KINASE 58 U/L (55-170); GLUCOSE 235 mg/dL (75-110); LIPASE 319.7 U/L (23-300); POTASSIUM 3.5 mmol/L (3.6-5.0); TOTAL PROTEIN 6.7 g/dL (6.3-8.2)
[2017-11-15 15:49] LABS: NT PRO BNP 40 pg/mL (5-900)
[2017-11-15 15:50] LABS: TROPONIN I < 0.012 ng/mL
--- NOTE | 2017-11-15 17:11 | RADIOLOGY REPORT (SQ) ---
EXAM DESCRIPTION: CTA CHEST COMPLETED DATE/TIME: 11/15/2017 4:51 pm REASON FOR STUDY: sob COMPARISON: Chest x-ray dated 11/15/[address] scan dated July 2016 TECHNIQUE: CT scan of the chest performed using helical scanning technique with dynamic intravenous contrast injection. Images reviewed with lung, soft tissue and bone windows. Reconstructed coronal and sagittal MPR images reviewed. Additional 3 dimensional post-processing performed to develop Maximal Intensity Projection images (OH P). All images stored on PACS. All CT scanners at this facility use dose modulation, iterative reconstruction, and/or weight based d osing when appropriate to reduce radiation dose to as low as reasonably achievable (ALARA). [facility]: Dose Right [facility]: CareDose [facility]: Dose Right [facility]: Teradose 4D [facility]: [employer]ok CONTRAST TYPE AND DOSE: contrast/concentration: Isovue 370.00 mg/ml; Total Contrast Delivered: 86.0 ml; Total Saline Delivered: 90.0 ml Contrast bolus optimized for the pulmonary arteries. Not diagnostic for the aorta. RENAL FUNCTION: Creatinine 1.13 RADIATION DOSE: CT Rad equipment meets quality standard of care and radiation dose reduction techniq ues were employed. CTDIvol: 33.1 - 35.7 mGy. DLP: 1379 mGy-cm. . LIMITATIONS: None. FINDINGS: LUNGS AND PLEURA: No masses, infiltrates, pneumothorax. No pleural effusions, calcificati ons. AORTA AND GREAT VESSELS: No aneurysm. Contrast bolus not optimized for the aorta. HEART: No pericardial effusion. No significant coronary artery calcifications. PULMONARY ARTERIES: No emboli visualized in the main pulmonary arteries or the segmental branches. HILAR AND MEDIASTINAL STRUCTURES: No identified masses or abnormal nodes. HARDWARE: None in the chest. UPPER ABDOMEN: No significant findings. Limited exam. THYROID AND OTHER SOFT TISSUES: No masses. No adenopathy. BONES: No acute or significant finding. Small sclerotic density is identified in 1 of the right mid ribs posteriorly unchanged from the previous study. 3D MIPS: Confirm above findings. OTHER: No other significant finding. IMPRESSION: No evidence for pulmonary embolic disease. No acute consolidations or pleural effusions are identified. No pneumothorax is seen. Other findings as noted above COMMENT: Quality ID # [id number]: Final reports with documentation of one or more dose reduction techniques (e.g., Automated exposure control, adjustment of the mA and/or kV according to patient size, use of iterative reconstruction technique) TECHNICAL DOCUMENTATION: JOB ID: [id number] [employer]- All Rights Reserved Reading location - IP/workstation name: [email or web address]
[2017-11-15] MEDS ORDERED: ALBUTEROL SULFATE 0.083% NEB 2.5 MG/3 ML AMPUL NEB PRN (17:42)
[2017-11-15] MEDS ORDERED: OXYCODONE-ACETAMINOPHEN 5-325 MG TABLET PO PRN (17:50)
[2017-11-15] MEDS ORDERED: ONDANSETRON HCL INJ/PF 4 MG/2 ML SDV IV PRN (17:50)
--- NOTE | 2017-11-15 18:06 | PDOC H&P ---
History of Present Illness Admission Date/PCP: 11/15/17 17:40 SANIYA MENDEZ PA-C Patient complains of: Short of breath History of Present Illness: JORGE DIXON is a 61 year old male who just got back from vacation and became very short of breath and decided to come into the emergency department. He states he has had a nonproductive cough, denies swelling, denies chest pain, denies fevers and chills, denies nausea vomiting and diarrhea. Past Medical History Cardiac Medical History: Reports: Coronary Artery Disease, Hypertension Pulmonary Medical History: Reports: Bronchitis, Chronic Obstructive Pulmonary Disease (COPD) Neurological Medical History: Denies: Seizures Endocrine Medical History: Reports: Obesity GI Medical History: Reports: Diverticulitis, Gastroesophageal Reflux Disease Musculoskeltal Medical History: Reports: Arthritis Past Surgical History Past Surgical History: Reports: Orthopedic Surgery - R knee, R wrist, Tonsillectomy Social History Information Source: Patient, [facility] Records Lives with: Family Smoking Status: Former Smoker - Quit in 2016 Frequency of Alcohol Use: None Hx Recreational Drug Use: No Drugs: None Hx Prescription Drug Abuse: No - Advance Directive Resuscitation Status: Full Code Surrogate healthcare decision maker:: His Family History Family History: CAD Parental Family History Reviewed: Yes Children Family History Reviewed: No Sibling(s) Family History Reviewed.: No Medication/Allergy Home Medications: Amitriptyline HCl 10 g PO QHS 11/30/15 Lisinopril 1 tab PO BID 11/30/15 Omeprazole 1 tab PO DAILY 11/30/15 Budesonide/Formoterol Fumarate [Symbicort HFA 160-4.5 mcg Inhaler 6 gm] 2 puff IH Q12 #1 inhaler 12/02/15 Aspirin [Aspirin EC] 81 mg PO DAILY 03/08/16 Atorvastatin Calcium 40 mg PO DAILY 03/08/16 Ergocalciferol (Vitamin D2) [Vitamin D] 50,000 unit PO FR 03/08/16 Mecobalamin [B-12] 1,000 mcg PO DAILY 03/08/16 Potassium Gluconate [Potassium] 99 mg PO DAILY 03/08/16 Ticagrelor [Brilinta 90 mg Tablet] 90 mg PO BID 03/08/16 Umeclidinium Brm/Vilanterol Tr [Anoro Ellipta 62.5-25 Mcg INH] 62.5 mcg IN DAILY 03/08/16 Albuterol Sulfate [Proair HFA] 1 - 2 puff IH Q4 PRN #1 inhaler 05/01/16 Furosemide [Lasix 20 mg Tablet] 20 mg PO QAM #30 tablet 05/01/16 Tiotropium Cypress [Spiriva Handihaler 18 mcg/dose (30 Dose)] 1 cap IH DAILY # 30 capsule 05/01/16 Cephalexin Monohydrate [Keflex 500 mg Capsule] 500 mg PO Q6H 5 Days capsule Oxycodone HCl/Acetaminophen [Percocet 5-325 mg Tablet] 1 tab PO Q6HP PRN #15 tablet 03/08/17 Allergies/Adverse Reactions: Penicillins Allergy (Verified 11/15/17 13:59) Review of Systems All systems: reviewed and no additional remarkable complaints except as stated Physical Exam Vital Signs: Temp Pulse Resp BP Pulse Ox 98.1 F 106 H 24 H 136/90 H 96 11/15/17 14:01 11/15/17 14:01 11/15/17 14:01 11/15/17 14:01 11/15/17 14:01 General appearance: PRESENT: no acute distress, morbidly obese Neck exam: PRESENT: other - No visible neck Respiratory exam: PRESENT: wheezes - Pharyngeal Cardiovascular exam: PRESENT: RRR GI/Abdominal exam: PRESENT: soft Neurological exam: PRESENT: alert Psychiatric exam: PRESENT: anxious Skin exam: PRESENT: warm - [place] Results Impressions: Chest X-Ray 11/15/17 14:16 IMPRESSION: No acute cardiopulmonary findings Chest/Abdomen CTA 11/15/17 16:16 IMPRESSION: No evidence for pulmonary embolic disease. No acute consolidations or pleural effusions are identified. No pneumothorax is seen. Other findings as noted above Assessment & Plan - Diagnosis (1) COPD exacerbation Is this a current diagnosis for this admission?: Yes Plan: Steroids, nebulizers, empiric antibiotics (2) Morbid (severe) obesity due to excess calories Is this a current diagnosis for this admission?: Yes (3) ILIANA (obstructive sleep apnea) Is this a current diagnosis for this admission?: Yes Plan: CPAP at at bedtime (4) HTN (hypertension) Qualifiers: Hypertension type: essential hypertension Qualified Code(s): I10 - Essential (primary) hypertension Is this a current diagnosis for this admission?: Yes Plan: Continue home medications (5) CAD (coronary artery disease) Is this a current diagnosis for this admission?: Yes Plan: Monitor on telemetry and otherwise continue home medications.
[2017-11-15] MEDS: ALBUTEROL SULFATE 0.083% NEB 2.5 MG/3 ML AMPUL NEB SCH (20:17)
[2017-11-15] MEDS: LISINOPRIL 5 MG TABLET PO SCH (21:05)
[2017-11-15] MEDS: BUDESONIDE/FORMOTEROL 160-4.5 MCG 60 PUFF/6 GM MDI IH SCH (21:07)
[2017-11-15] MEDS ORDERED: AMITRIPTYLINE HCL 10 MG TABLET PO SCH (22:00)
[2017-11-15] MEDS ORDERED: ATORVASTATIN CALCIUM 40 MG TABLET PO SCH (22:00)
[2017-11-15] MEDS ORDERED: LEVOFLOXACIN 750 MG/D5W RTU 750 MG/150 ML RTUPB IV SCH (22:00)
--- NOTE | 2017-11-15 22:31 | EKG REPORT ---
SEVERITY:- NORMAL ECG - SINUS RHYTHM : Confirmed by: Art Hannon 15-Nov-2017 22:30:49
[2017-11-16] MEDS ORDERED: LANSOPRAZOLE 15 MG TAB.RAP.DR PO SCH (06:00)
[2017-11-16] MEDS ORDERED: FUROSEMIDE 20 MG TABLET PO SCH (08:00)
[2017-11-16] MEDS: ALBUTEROL SULFATE 0.083% NEB 2.5 MG/3 ML AMPUL NEB SCH (08:03)
[2017-11-16] MEDS ORDERED: (PENDING PHARMACY ID) (Potassium Gluconate [Potassium] 99 MG) PO SCH (10:00)
[2017-11-16] MEDS ORDERED: PREDNISONE 20 MG TABLET PO SCH (10:00)
[2017-11-16] MEDS ORDERED: TICAGRELOR 90 MG TABLET PO SCH (10:00)
[2017-11-16] MEDS ORDERED: ENOXAPARIN SODIUM INJ 40 MG/0.4 ML DISP.SYRIN SUBCUT SCH (10:00)
[2017-11-16] MEDS ORDERED: [UNRECOGNIZED DRUG - OTHER] IN SCH (10:00)
[2017-11-16] MEDS ORDERED: MECOBALAMIN 1000 MCG PO SCH (10:00)
[2017-11-16] MEDS ORDERED: TIOTROPIUM BROMIDE DPI 5 CAP/KIT (18 MCG/CAP) IH SCH (10:00)
[2017-11-16] MEDS ORDERED: ATORVASTATIN CALCIUM 80 MG TABLET PO SCH (10:00)
[2017-11-16] MEDS ORDERED: ASPIRIN 81 MG TABLET, ENT COATED PO SCH (10:00)
[2017-11-16] MEDS ORDERED: (PENDING PHARMACY ID) (Omeprazole [Omeprazole] 1 TAB) PO SCH (10:00)
[2017-11-16] MEDS ORDERED: CYANOCOBALAMIN (VITAMIN B-12) 1,000 MCG TABLET PO SCH (10:00)
[2017-11-16] MEDS: LISINOPRIL 5 MG TABLET PO SCH (10:31)
[2017-11-16] MEDS: BUDESONIDE/FORMOTEROL 160-4.5 MCG 60 PUFF/6 GM MDI IH SCH (10:32)
[2017-11-16 11:28] VITALS: BP 144/90
--- NOTE | 2017-11-16 20:09 | PDOC DISCHARGE SUMMARY ---
General - Admit/Disc Date/PCP Admission Date/Primary Care Provider: 11/15/17 17:40 SANIYA MENDEZ PA-C Discharge Date: 11/16/17 - Discharge Diagnosis (1) COPD exacerbation Is this a current diagnosis for this admission?: Yes Summary: Treated with nebulizers, steroids, empiric antibiotics. He feels considerably better and would like to go home to complete his convalescence (2) Morbid (severe) obesity due to excess calories Is this a current diagnosis for this admission?: Yes (3) ILIANA (obstructive sleep apnea) Is this a current diagnosis for this admission?: Yes (4) HTN (hypertension) Is this a current diagnosis for this admission?: Yes Summary: Continue home medications (5) CAD (coronary artery disease) Is this a current diagnosis for this admission?: Yes - Additional Information Resuscitation Status: Full Code Discharge Diet: Cardiac Discharge Activity: Activity As Tolerated Prescriptions: Albuterol Sulfate [Ventolin 0.083% Neb 2.5 mg/3 mL Ampul] 2.5 mg NEB [id number] # 180 vial.neb Levofloxacin [Levaquin 750 mg Tablet] 750 mg PO DAILY #5 tablet Prednisone [Deltasone 20 mg Tablet] 40 mg PO DAILY #10 tablet Home Medications: Albuterol Sulfate [Ventolin Hfa] 1 - 2 puff IH Q4 PRN 11/15/17 Amitriptyline HCl [Elavil 10 mg Tablet] 10 mg PO DAILY 11/15/17 Aspirin [Aspirin EC] 81 mg PO DAILY 11/15/17 Atorvastatin Calcium [Lipitor 80 mg Tablet] 80 mg PO QHS 11/15/17 Budesonide/Formoterol Fumarate [Symbicort 160-4.5 Mcg Inhaler] 10.2 gm IH DAILY 11/15/17 Colchicine [Colcrys 0.6 mg Tablet] 1 tab PO DAILY 11/15/17 Cyanocobalamin (Vitamin B-12) [B-12] 1,000 mcg PO DAILY 11/15/17 Diclofenac Sodium [Voltaren] 75 mg PO BID 11/15/17 Furosemide [Lasix 40 mg Tablet] 40 mg PO BID 11/15/17 Isosorbide Dinitrate 30 mg PO DAILY 11/15/17 Metoprolol Tartrate [Lopressor 25 mg Tablet] 25 mg PO Q12 11/15/17 Pantoprazole Sodium [Protonix] 40 mg PO DAILY 11/15/17 Paroxetine HCl [Paxil] 10 mg PO DAILY 11/15/17 Prednisone [Deltasone 20 mg Tablet] 20 mg PO ASDIR PRN 11/15/17 Spironolactone [Aldactone 25 mg Tablet] 25 mg PO BID 11/15/17 Umeclidinium Brm/Vilanterol Tr [Anoro Ellipta 62.5-25 Mcg INH] 1 each IH DAILY 11/15/17 Albuterol Sulfate [Ventolin 0.083% Neb 2.5 mg/3 mL Ampul] 2.5 mg NEB [id number] # 180 vial.neb 11/16/17 Levofloxacin [Levaquin 750 mg Tablet] 750 mg PO DAILY #5 tablet 11/16/17 Prednisone [Deltasone 20 mg Tablet] 40 mg PO DAILY #10 tablet 11/16/17 History of Present Illness Patient complains of: Short of breath History of Present Illness: JORGE DIXON is a 61 year old male who just got back from vacation and became very short of breath and decided to come into the emergency department. He states he has had a nonproductive cough, denies swelling, denies chest pain, denies fevers and chills, denies nausea vomiting and diarrhea. Hospital Course Hospital Course: He was treated with nebulizers, steroids, Levaquin and rapidly improved. He is ambulatory on room air and would like to go home. Physical Exam Vital Signs: Temp Pulse Resp BP Pulse Ox 97.9 F 75 16 144/90 H 97 11/16/17 11:24 11/16/17 11:24 11/16/17 11:24 11/16/17 11:24 11/16/17 11:24 Intake & Output 11/15/17 11/16/17 11/17/17 06:59 06:59 06:59 Intake Total 623 Balance 623 Weight 273 lb 13.026 oz General appearance: PRESENT: no acute distress, morbidly obese Respiratory exam: PRESENT: clear to auscultation jamilah - Very distant breath sounds, prolonged expiratory phas Cardiovascular exam: PRESENT: RRR GI/Abdominal exam: PRESENT: soft Extremities exam: ABSENT: other - No edema Musculoskeletal exam: PRESENT: normal inspection Neurological exam: PRESENT: alert Psychiatric exam: PRESENT: appropriate affect Skin exam: PRESENT: warm Results Impressions: Chest X-Ray 11/15/17 14:16 IMPRESSION: No acute cardiopulmonary findings Chest/Abdomen CTA 11/15/17 16:16 IMPRESSION: No evidence for pulmonary embolic disease. No acute consolidations or pleural effusions are identified. No pneumothorax is seen. Other findings as noted above Qualifiers - * PATIENT BEING DISCHARGED WITH ANY OF THE FOLLOWING DIAGNOSIS: No
== END 2017-11-16 11:45 | disposition home or self-care (01) | DRG 191 ==
LOC: ER 13:58 → EH 17:40 → 3N 19:45
PROVIDERS: ADMIT Internal Medicine; ATTEND Internal Medicine
DX: J44.1 Chronic obstructive pulmonary disease with (acute) exacerbation (principal); Z68.41 Body mass index [BMI] 40.0-44.9, adult; I11.0 Hypertensive heart disease with heart failure; I50.9 Heart failure, unspecified; C61 Malignant neoplasm of prostate; I25.10 Atherosclerotic heart disease of native coronary artery without angina pectoris; K21.9 Gastro-esophageal reflux disease without esophagitis; G47.33 Obstructive sleep apnea (adult) (pediatric); E66.01 Morbid (severe) obesity due to excess calories; Z95.5 Presence of coronary angioplasty implant and graft; Z79.82 Long term (current) use of aspirin; Z79.51 Long term (current) use of inhaled steroids; Z79.899 Other long term (current) drug therapy; Z87.891 Personal history of nicotine dependence
CPT/HCPCS: 36415; 71046; 71275; 80053; 82550; 83690; 83880; 84484; 85025; 85610; 85730; 93005; 93010; 94640; 96374; 99291; J1956; J2930; J3490; J7512; J7620

== ENCOUNTER → 2017-11-25 | Outpatient (CLI) | payer BC ==
--- NOTE | 2017-11-25 11:26 | RADIOLOGY REPORT (SQ) ---
EXAM DESCRIPTION: U/S ABDOMEN COMPLETE W/O DOP COMPLETED DATE/TIME: 11/25/2017 10:15 am REASON FOR STUDY: RUQ ABDOMINAL PAIN R10.11 RIGHT UPPER QUADRANT PAIN COMPARISON: None. TECHNIQUE: Dynamic and static grayscale images acquired of the abdomen and recorded on PACS. Isabellao marcial selected color Doppler and spectral images recorded. LIMITATIONS: None. FINDINGS: PANCREAS: No masses. Visualized pancreatic duct normal caliber. LIVER: Echotexture is coarse with increased echogenicity consistent with fatty infiltration. LIVER VASCULATURE: Normal directional flow of the main portal vein and hepatic veins. GALLBLADDER: No stones. Normal wall thickness. No pericholecystic fluid. ULTRASOUND-DETECTED GABRIEL'S SIGN: Negative. INTRAHEPATIC DUCTS AND COMMON DUCT: CBD and intrahepatic ducts normal caliber. No filling defects. INFERIOR VENA CAVA: Normal flow. AORTA: No aneurysm. RIGHT KIDNEY: Normal size. Normal echogenicity. No solid or suspicious masses. No hydronephrosis. No calcifications. LEFT KIDNEY: Normal size. Normal echogenicity. No solid or suspicious masses. No hydronephrosis. No calcifications. SPLEEN:Normal size. No solid masses. PERITONEAL AND PLEURAL SPACES: No ascites or effusions. OTHER: No other significant finding. IMPRESSION: FATTY LIVER. NO OTHER SIGNIFICANT FINDING. TECHNICAL DOCUMENTATION: JOB ID: [id number] [employer]- All Rights Reserved Reading location - IP/workstation name: Unknown
== END ==
LOC: RAD 09:46
PROVIDERS: ATTEND Physician Assistant
DX: R10.11 Right upper quadrant pain (principal); K76.0 Fatty (change of) liver, not elsewhere classified
CPT/HCPCS: 76700

== ENCOUNTER 2018-04-02 00:12 | Inpatient (IN) | payer BC ==
[2018-04-02] MEDS ORDERED: CEFTRIAXONE INJ 1000 MG VIAL IV ONE (00:47)
[2018-04-02] MEDS ORDERED: DOXYCYCLINE HYCLATE INJ 100 MG VIAL IV ONE (00:47)
[2018-04-02 01:21] LABS: ABSOLUTE BASOPHILS # (AUTO) 0.1 10^3/uL (0.0-0.2); ABSOLUTE LYMPHOCYTES (AUTO) 1.1 10^3/uL (0.5-4.7); ABSOLUTE MONOCYTES (AUTO) 0.7 10^3/uL (0.1-1.4); ABSOLUTE NEUT (AUTO) 15.6 10^3/uL (1.7-8.2); BASOPHILS % (AUTO) 0.8 % (0-2); EOSINOPHILS % (AUTO) 0.2 % (0-6); HEMATOCRIT 43.1 % (37.9-51.0); HEMOGLOBIN 14.6 g/dL (13.5-17.0); LYMPHOCYTES % (AUTO) 6.5 % (13-45); MEAN CORPUSCULAR HEMOGLOBIN 28.4 pg (27.0-33.4); MEAN CORPUSCULAR HGB CONC 33.8 g/dL (32.0-36.0); MEAN CORPUSCULAR VOLUME 84 fl (80-97); MONOCYTES % (AUTO) 3.8 % (3-13); PLATELET COUNT 238 10^3/uL (150-450); RED BLOOD COUNT 5.13 10^6/uL (4.35-5.55); RED CELL DISTRIBUTION WIDTH 15.6 % (11.5-14.0); SEGMENTED NEUTROPHILS % (AUTO) 88.7 % (42-78); TOTAL CELLS COUNTED % (AUTO) 100 %; WHITE BLOOD COUNT 17.6 10^3/uL (4.0-10.5)
--- NOTE | 2018-04-02 01:21 | RADIOLOGY REPORT (SQ) ---
3 VIEWS OF THE LEFT HAND HISTORY: left hand swelling, pain, eval foreign body COMPARISON: None. FINDINGS/IMPRESSION: 4 mm radiopaque foreign body in the soft tissues surrounding the fourth and fifth digits. Diffuse soft tissue swelling of the left hand. Normal bone mineralization. No acute fracture or malalignment. Joint spaces are preserved.
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
[2018-04-02] MEDS ORDERED: RINGERS SOLUTION,LACTATED 1,000 ML IV ONE (01:32)
[2018-04-02] MEDS ORDERED: VANCOMYCIN HCL INJ 1000 MG VIAL IV ONE (01:32)
[2018-04-02 01:38] LABS: ANION GAP 10 (5-19); BLOOD UREA NITROGEN 16 mg/dL (7-20); CALCIUM 9.8 mg/dL (8.4-10.2); CARBON DIOXIDE 26 mmol/L (22-30); CHLORIDE 100 mmol/L (98-107); GLUCOSE 124 mg/dL (75-110); POTASSIUM 3.3 mmol/L (3.6-5.0); SODIUM 136.3 mmol/L (137-145)
[2018-04-02] MEDS ORDERED: MAGNESIUM HYDROXIDE SUSP 30 ML UDCUP PO PRN (02:42)
[2018-04-02] MEDS ORDERED: IPRATROPIUM/ALBUTEROL 0.5-2.5 MG/3 ML AMPUL NEB PRN (02:42)
[2018-04-02] MEDS ORDERED: MAG HYDROX/AL HYDROX/SIMETH SUSP 30 ML UDCUP PO PRN (02:42)
[2018-04-02] MEDS ORDERED: ACETAMINOPHEN 325 MG TABLET PO PRN (02:42)
[2018-04-02] MEDS ORDERED: NORMAL SALINE 1000 ML 1,000 ML IV SCH (02:45)
[2018-04-02] MEDS ORDERED: VANCOMYCIN HCL 0 MG in DEXTROSE 5%-WATER 250 ML IV NR (02:45)
[2018-04-02] MEDS ORDERED: HYDRALAZINE HCL INJ/PF 20 MG/1 ML SDV IV PRN (02:47)
[2018-04-02] MEDS ORDERED: ISOSORBIDE DINITRATE 10 MG TABLET PO ONE (03:00)
[2018-04-02] MEDS ORDERED: METOPROLOL TARTRATE 25 MG TABLET PO ONE (03:00)
[2018-04-02] MEDS ORDERED: DICLOFENAC SODIUM 50 MG TABLET.DR PO ONE (03:00)
[2018-04-02] MEDS ORDERED: DICLOFENAC SODIUM 25 MG TABLET.DR PO ONE ×2 (03:00→04:00)
--- NOTE | 2018-04-02 03:24 | PDOC CONSULTATION ---
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 He noticed immediately redness swelling and blister formations forming on the left hand. Denies any fevers or chills. Denies any previous injuries to the left hand. Denies any other area of the body being cut. Denies any nausea vomiting diarrhea. Complains of left hand swelling and pain with range of motion of the hand and wrist. Denies any numbness or tingling or paresthesias of the left hand or any other extremity. Past Medical History Cardiac Medical History: Reports: Coronary Artery Disease, Hypertension Pulmonary Medical History: Reports: Bronchitis, Chronic Obstructive Pulmonary Disease (COPD) Neurological Medical History: Denies: Seizures GI Medical History: Reports: Diverticulitis, Gastroesophageal Reflux Disease Musculoskeltal Medical History: Reports: Arthritis Psychiatric Medical History: Denies: Depression Past Surgical History Past Surgical History: Reports: Orthopedic Surgery - R knee, R wrist, Tonsillectomy Social History Lives with: Spouse/Significant other Smoking Status: Current Every Day Smoker Frequency of Alcohol Use: Occasional Hx Recreational Drug Use: No Drugs: None Hx Prescription Drug Abuse: No Family History Family History: CAD Parental Family History Reviewed: No Children Family History Reviewed: No Sibling(s) Family History Reviewed.: No Medication/Allergy Home Medications: Albuterol Sulfate [Ventolin Hfa] 1 - 2 puff IH Q4 PRN 11/15/17 Amitriptyline HCl [Elavil 10 mg Tablet] 10 mg PO DAILY 11/15/17 Aspirin [Aspirin EC] 81 mg PO DAILY 11/15/17 Atorvastatin Calcium [Lipitor 80 mg Tablet] 80 mg PO QHS 11/15/17 Budesonide/Formoterol Fumarate [Symbicort 160-4.5 Mcg Inhaler] 10.2 gm IH DAILY 11/15/17 Colchicine [Colcrys 0.6 mg Tablet] 1 tab PO DAILY 11/15/17 Cyanocobalamin (Vitamin B-12) [B-12] 1,000 mcg PO DAILY 11/15/17 Diclofenac Sodium [Voltaren] 75 mg PO BID 11/15/17 Furosemide [Lasix 40 mg Tablet] 40 mg PO BID 11/15/17 Isosorbide Dinitrate 30 mg PO DAILY 11/15/17 Metoprolol Tartrate [Lopressor 25 mg Tablet] 25 mg PO Q12 11/15/17 Pantoprazole Sodium [Protonix] 40 mg PO DAILY 11/15/17 Paroxetine HCl [Paxil] 10 mg PO DAILY 11/15/17 Prednisone [Deltasone 20 mg Tablet] 20 mg PO ASDIR PRN 11/15/17 Spironolactone [Aldactone 25 mg Tablet] 25 mg PO BID 11/15/17 Umeclidinium Brm/Vilanterol Tr [Anoro Ellipta 62.5-25 Mcg INH] 1 each IH DAILY 11/15/17 Albuterol Sulfate [Ventolin 0.083% Neb 2.5 mg/3 mL Ampul] 2.5 mg NEB [id number] # 180 vial.neb 11/16/17 Levofloxacin [Levaquin 750 mg Tablet] 750 mg PO DAILY #5 tablet 11/16/17 Prednisone [Deltasone 20 mg Tablet] 40 mg PO DAILY #10 tablet 11/16/17 Allergies/Adverse Reactions: Penicillins Allergy (Verified 11/15/17 13:59) Review of Systems Review of Systems: Constitutional: [PRESENT: as per HPI. ABSENT: chills, fever(s), headache(s), weight gain, weight loss] Eyes: [ABSENT: visual disturbances] Ears: [ABSENT: hearing changes] Cardiovascular: [ABSENT: chest pain, dyspnea on exertion, edema, orthropnea, palpitations] Respiratory: [ABSENT: cough, hemoptysis] Gastrointestinal: [ABSENT: abdominal pain, constipation, diarrhea, hematemesis, hematochezia, nausea, vomiting] Genitourinary: [ABSENT: dysuria, hematuria] Musculoskeletal: As per HPI Integumentary: [ABSENT: rash, wounds] Neurological: [ABSENT: abnormal gait, abnormal speech, confusion, dizziness, focal weakness, syncope] Psychiatric: [ABSENT: anxiety, depression, homicidal ideation, suicidal ideation ] Endocrine: [ABSENT: cold intolerance, heat intolerance, menstrual abnormalities , polydipsia, polyuria] Hematologic/Lymphatic: [ABSENT: easy bleeding, easy bruising, lymphadenopathy] Physical Exam Vital Signs: Temp Pulse Resp BP Pulse Ox 37.0 C 99 20 120/88 H 100 04/02/18 00:19 04/02/18 00:19 04/02/18 00:19 04/02/18 00:04/02/18 00:19 General appearance: PRESENT: no acute distress, obese Head exam: PRESENT: atraumatic, normocephalic Eye exam: PRESENT: EOMI, other - Equally round pupils. ABSENT: nystagmus Ear exam: PRESENT: normal external ear exam. ABSENT: bleeding Mouth exam: PRESENT: neck supple Neck exam: ABSENT: lymphadenopathy, tenderness, thyromegaly Respiratory exam: PRESENT: accessory muscle use, symmetrical, unlabored. ABSENT : tachypnea Vascular exam: PRESENT: normal capillary refill GI/Abdominal exam: PRESENT: soft. ABSENT: tenderness Back of Hands Image: 1 - Patient has lymphangitis on the volar aspect of the left forearm. The small finger he does have a small cut that is scabbed over. He has significant swelling at the dorsal aspect of the hand to the distal third of the forearm with some hemorrhagic bullae that had a little white On them but when opened only got blood. He is tender palpation of the dorsal aspect of the of the hand. No fluctuance or abscess noted. Patient although painful can extend and flex all 5 digits at the DIP PIP and MCP joints. He has good capillary refill and radial pulse. Neurological exam: PRESENT: alert, awake, oriented to person, oriented to place , oriented to time, oriented to situation Psychiatric exam: PRESENT: appropriate affect, normal mood Skin exam: PRESENT: erythema, skin tears, vesicles - Hemorrhagic in nature, other - Small laceration second to the pinchers from the crap.. ABSENT: intact Results Impressions: Hand X-Ray 04/02/18 00:46 FINDINGS/IMPRESSION: 4 mm radiopaque foreign body in the soft tissues surrounding the fourth and fifth digits. Diffuse soft tissue swelling of the left hand. Normal bone mineralization. No acute fracture or malalignment. Joint spaces are preserved. Status: Image reviewed by me Assessment & Plan - Diagnosis (1) Cellulitis of left hand Is this a current diagnosis for this admission?: Yes Plan: 62-year-old gentleman who has high suspicion for cellulitis second to Vibrio vulnificus. There is no obvious abscess requiring I&D. Major concern is that the patient may develop necrotizing fasciitis. I believe the infection is within 24-36 hours and will respond to aggressive antibiotics directed to vibrio infection. In the next 48 hours if infection does not improve then patient may be a candidate for surgical intervention but I discussed with the patient 50% of these may not require any surgical intervention if caught a timely fashion. I think his infection was by inoculation. Will order blood sutures to make sure he is not bacteremic or septic which clinically he does not seem to be. X-rays do's show a retained foreign body but his history does not match the foreign body to be acute and I believe this is old in nature. Discuss with Dr. James the who agreed to admit for IV antibiotics and orthopedic to consult.
[2018-04-02] MEDS: ISOSORBIDE DINITRATE 10 MG TABLET PO SCH (06:10)
--- NOTE | 2018-04-02 06:38 | PDOC H&P ---
History of Present Illness Admission Date/PCP: 04/02/18 02:49 Patient complains of: Left hand erythema and pain History of Present Illness: JORGE DIXON is a 62 year old male with a past medical history of morbid obesity, obstructive sleep apnea, congestive heart failure and hypertension. He presents with 3 days of erythema swelling and pain with blisters of blood to the left hand following injury sustained while fishing for crabs. Imaging reveals foreign body, orthopedic surgery consulted for removal he has bedside debridement and referred to the hospitalist for admission. Patient denies recent medication changes. Otherwise feels well Past Medical History Cardiac Medical History: Reports: Coronary Artery Disease, Hypertension Pulmonary Medical History: Reports: Bronchitis, Chronic Obstructive Pulmonary Disease (COPD), Sleep Apnea Neurological Medical History: Denies: Seizures GI Medical History: Reports: Diverticulitis, Gastroesophageal Reflux Disease Musculoskeltal Medical History: Reports: Arthritis Psychiatric Medical History: Denies: Depression Past Surgical History Past Surgical History: Reports: Orthopedic Surgery - R knee, R wrist, Tonsillectomy Social History Information Source: Patient Lives with: Spouse/Significant other Smoking Status: Current Every Day Smoker Frequency of Alcohol Use: Occasional Hx Recreational Drug Use: No Drugs: None Hx Prescription Drug Abuse: No - Advance Directive Resuscitation Status: Full Code Family History Family History: CAD Parental Family History Reviewed: Yes Children Family History Reviewed: Yes Sibling(s) Family History Reviewed.: Yes Medication/Allergy Home Medications: Albuterol Sulfate [Ventolin Hfa] 1 - 2 puff IH Q4 PRN 11/15/17 Amitriptyline HCl [Elavil 10 mg Tablet] 10 mg PO DAILY 11/15/17 Aspirin [Aspirin EC] 81 mg PO DAILY 11/15/17 Atorvastatin Calcium [Lipitor 80 mg Tablet] 80 mg PO QHS 11/15/17 Budesonide/Formoterol Fumarate [Symbicort 160-4.5 Mcg Inhaler] 10.2 gm IH DAILY 11/15/17 Colchicine [Colcrys 0.6 mg Tablet] 1 tab PO DAILY 11/15/17 Cyanocobalamin (Vitamin B-12) [B-12] 1,000 mcg PO DAILY 11/15/17 Diclofenac Sodium [Voltaren] 75 mg PO BID 11/15/17 Furosemide [Lasix 40 mg Tablet] 40 mg PO BID 11/15/17 Isosorbide Dinitrate 30 mg PO DAILY 11/15/17 Metoprolol Tartrate [Lopressor 25 mg Tablet] 25 mg PO Q12 11/15/17 Pantoprazole Sodium [Protonix] 40 mg PO DAILY 11/15/17 Paroxetine HCl [Paxil] 10 mg PO DAILY 11/15/17 Prednisone [Deltasone 20 mg Tablet] 20 mg PO ASDIR PRN 11/15/17 Spironolactone [Aldactone 25 mg Tablet] 25 mg PO BID 11/15/17 Umeclidinium Brm/Vilanterol Tr [Anoro Ellipta 62.5-25 Mcg INH] 1 each IH DAILY 11/15/17 Albuterol Sulfate [Ventolin 0.083% Neb 2.5 mg/3 mL Ampul] 2.5 mg NEB [id number] # 180 vial.neb 11/16/17 Levofloxacin [Levaquin 750 mg Tablet] 750 mg PO DAILY #5 tablet 11/16/17 Prednisone [Deltasone 20 mg Tablet] 40 mg PO DAILY #10 tablet 11/16/17 Allergies/Adverse Reactions: Penicillins Allergy (Verified 11/15/17 13:59) Review of Systems Constitutional: ABSENT: chills, fever(s), headache(s), weight gain, weight loss Eyes: ABSENT: visual disturbances Ears: ABSENT: hearing changes Cardiovascular: ABSENT: chest pain, dyspnea on exertion, edema, orthropnea, palpitations Respiratory: ABSENT: cough, hemoptysis Gastrointestinal: ABSENT: abdominal pain, constipation, diarrhea, hematemesis, hematochezia, nausea, vomiting Genitourinary: ABSENT: dysuria, hematuria Musculoskeletal: ABSENT: joint swelling Integumentary: ABSENT: rash, wounds Neurological: ABSENT: abnormal gait, abnormal speech, confusion, dizziness, focal weakness, syncope Psychiatric: ABSENT: anxiety, depression, homidical ideation, suicidal ideation Endocrine: ABSENT: cold intolerance, heat intolerance, polydipsia, polyuria Hematologic/Lymphatic: ABSENT: easy bleeding, easy bruising Physical Exam Vital Signs: Temp Pulse Resp BP Pulse Ox 98.6 F 90 20 126/84 H 96 04/02/18 00:19 04/02/18 03:00 04/02/18 03:00 04/02/18 03:00 04/02/18 03:00 General appearance: PRESENT: no acute distress, cooperative, mild distress, morbidly obese, well-developed, well-nourished Head exam: PRESENT: atraumatic, normocephalic Eye exam: PRESENT: conjunctiva pink, EOMI, PERRLA. ABSENT: scleral icterus Ear exam: PRESENT: normal external ear exam Mouth exam: PRESENT: moist, tongue midline Neck exam: ABSENT: carotid bruit, JVD, lymphadenopathy, thyromegaly Respiratory exam: PRESENT: clear to auscultation jamilah. ABSENT: rales, rhonchi, wheezes Cardiovascular exam: PRESENT: RRR. ABSENT: diastolic murmur, rubs, systolic murmur Pulses: PRESENT: normal dorsalis pedis pul Vascular exam: PRESENT: normal capillary refill GI/Abdominal exam: PRESENT: normal bowel sounds, soft. ABSENT: distended, guarding, mass, organolmegaly, rebound, tenderness Rectal exam: PRESENT: deferred Extremities exam: PRESENT: full ROM, +1 edema, other - Right hand edematous but also wrapped by orthopedic surgery.. ABSENT: calf tenderness, clubbing, pedal edema Neurological exam: PRESENT: alert, awake, oriented to person, oriented to place , oriented to time, oriented to situation, CN II-XII grossly intact. ABSENT: motor sensory deficit Psychiatric exam: PRESENT: appropriate affect, normal mood. ABSENT: homicidal ideation, suicidal ideation Skin exam: PRESENT: dry, intact, warm. ABSENT: cyanosis, rash Results Impressions: Hand X-Ray 04/02/18 00:46 FINDINGS/IMPRESSION: 4 mm radiopaque foreign body in the soft tissues surrounding the fourth and fifth digits. Diffuse soft tissue swelling of the left hand. Normal bone mineralization. No acute fracture or malalignment. Joint spaces are preserved. Assessment & Plan - Diagnosis (1) Cellulitis of left hand Is this a current diagnosis for this admission?: Yes Plan: Given history of fishing and bleeding blisters likely suggests vibrio. He started on IV doxycycline, follow-up orthopedic surgery consult, blood culture and CBC (2) CAD (coronary artery disease) Is this a current diagnosis for this admission?: Yes Plan: Resume outpatient medication regiment (3) COPD exacerbation Is this a current diagnosis for this admission?: Yes Plan: Resume outpatient medication regiment (4) ILIANA (obstructive sleep apnea) Is this a current diagnosis for this admission?: Yes Plan: CPAP - Time Time Spent: 30 to 50 Minutes - Inpatient Certification Medical Necessity: Need Close Monitoring Due to Risk of Patient Decompensation
[2018-04-02] MEDS ORDERED: DICLOFENAC SODIUM 25 MG TABLET.DR PO SCH ×2 (10:00)
[2018-04-02] MEDS ORDERED: ASPIRIN 81 MG TABLET, ENT COATED PO SCH (10:00)
[2018-04-02] MEDS ORDERED: DOXYCYCLINE HYCLATE 200 MG in DEXTROSE 5%-WATER 250 ML IV SCH (10:00)
[2018-04-02] MEDS ORDERED: ISOSORBIDE DINITRATE 10 MG TABLET PO SCH (10:00)
[2018-04-02] MEDS: HEPARIN SOD (PORCINE) 5,000 UNIT/ML 1 ML SYRINGE SUBCUT SCH ×3 (10:44→22:13)
[2018-04-02] MEDS: FUROSEMIDE 40 MG TABLET PO SCH ×2 (10:50→22:03)
[2018-04-02] MEDS: DOCUSATE SODIUM 100 MG CAPSULE PO SCH ×2 (10:50→18:41)
[2018-04-02] MEDS: SPIRONOLACTONE 25 MG TABLET PO SCH ×2 (10:50→22:01)
[2018-04-02] MEDS: DOXYCYCLINE HYCLATE 100 MG in DEXTROSE 5%-WATER 250 ML IV SCH ×2 (10:58→23:20)
[2018-04-02] MEDS: AMITRIPTYLINE HCL 10 MG TABLET PO SCH (10:58)
[2018-04-02] MEDS: METOPROLOL TARTRATE 25 MG TABLET PO SCH ×2 (10:59→23:28)
[2018-04-02] MEDS ORDERED: ALBUTEROL SULFATE 0.083% NEB 2.5 MG/3 ML AMPUL NEB PRN (15:12)
--- NOTE | 2018-04-02 15:17 | PDOC PROGRESS REPORT ---
Subjective Progress Note for:: 04/02/18 Subjective:: 62-year-old white male who had wound on the dorsum of his left hand secondary to multiple crabPitching. Developed cellulitis seen by orthopedics no an incision and drainage required as he was draining. Does not appear cultures were sent from the emergency room. Patient was given Rocephin started on doxycycline and vancomycin. White count 17,000.Patient is able to wiggle his fingers he has swelling of the hand there is no pain in the forearm or evidence of tendinitis. Reason For Visit: HAND CELLULITIS Physical Exam Vital Signs: Temp Pulse Resp BP Pulse Ox 97.9 F 61 16 113/74 97 04/02/18 14:00 04/02/18 14:00 04/02/18 14:00 04/02/18 14:00 04/02/18 14:00 Intake & Output 04/01/18 04/02/18 04/03/18 06:59 06:59 06:59 Intake Total 250 Balance 250 Results Impressions: Hand X-Ray 04/02/18 00:46 FINDINGS/IMPRESSION: 4 mm radiopaque foreign body in the soft tissues surrounding the fourth and fifth digits. Diffuse soft tissue swelling of the left hand. Normal bone mineralization. No acute fracture or malalignment. Joint spaces are preserved. Assessment & Plan - Diagnosis (1) Cellulitis of left forearm Is this a current diagnosis for this admission?: Yes Plan: Continue vancomycin and doxycycline. Will add Rocephin for empiric coverage for vibrio vulnificus. Erythema on the forearm appears stable the area has been marked by nursing. Will monitor as going forward. CBC in a.m. (2) Cellulitis of left hand Is this a current diagnosis for this admission?: Yes Plan: Wound draining and currently dressed serous fluid expressed by orthopedics. Will have nursing send culture will obtain AFB Stain and culture to rule out Mycobacterium marinum. (3) CAD (coronary artery disease) Qualifiers: Coronary Disease-Associated Artery/Lesion type: unspecified vessel or lesion type [place] vs. transplanted heart: [place] heart Associated angina: without angina Qualified Code(s): I25.10 - Atherosclerotic heart disease of [place] coronary artery without angina pectoris Is this a current diagnosis for this admission?: Yes Plan: No anginal complaints continue outpatient medications. (4) COPD (chronic obstructive pulmonary disease) Qualifiers: COPD type: COPD with acute exacerbation Qualified Code(s): J44.1 - Chronic obstructive pulmonary disease with (acute) exacerbation Is this a current diagnosis for this admission?: Yes Plan: No active disease at this time as needed nebulizers available. - Time Time Spent with patient: 25-34 minutes
[2018-04-02] MEDS ORDERED: DICLOFENAC SODIUM 50 MG TABLET.DR PO SCH (18:00)
[2018-04-02] MEDS: VANCOMYCIN HCL 1,500 MG in DEXTROSE 5%-WATER 250 ML IV SCH (18:41)
[2018-04-02] MEDS: RINGERS SOLUTION,LACTATED 1,000 ML IV PRN (19:42)
[2018-04-02] MEDS ORDERED: POTASSIUM CHLORIDE 10 MEQ CAPSULE.ER PO ONE (21:46)
[2018-04-02] MEDS: PAROXETINE HCL 20 MG TABLET PO SCH (22:01)
[2018-04-02] MEDS: NICOTINE 7 MG/24 HR PATCH.TD24 TD SCH (22:04)
[2018-04-02] MEDS: ATORVASTATIN CALCIUM 80 MG TABLET PO SCH (23:21)
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
[2018-04-03 01:40] LABS: ABSOLUTE BASOPHILS # (AUTO) 0.1 10^3/uL (0.0-0.2); ABSOLUTE EOSINOPHILS # (AUTO) 0.1 10^3/uL (0.0-0.6); ABSOLUTE LYMPHOCYTES (AUTO) 1.3 10^3/uL (0.5-4.7); ABSOLUTE MONOCYTES (AUTO) 0.6 10^3/uL (0.1-1.4); ABSOLUTE NEUT (AUTO) 13.1 10^3/uL (1.7-8.2); BASOPHILS % (AUTO) 0.5 % (0-2); EOSINOPHILS % (AUTO) 0.4 % (0-6); HEMATOCRIT 37.9 % (37.9-51.0); HEMOGLOBIN 12.7 g/dL (13.5-17.0); LYMPHOCYTES % (AUTO) 8.4 % (13-45); MEAN CORPUSCULAR HGB CONC 33.6 g/dL (32.0-36.0); MEAN CORPUSCULAR VOLUME 83 fl (80-97); PLATELET COUNT 201 10^3/uL (150-450); RED BLOOD COUNT 4.55 10^6/uL (4.35-5.55); RED CELL DISTRIBUTION WIDTH 15.6 % (11.5-14.0); SEGMENTED NEUTROPHILS % (AUTO) 86.7 % (42-78); TOTAL CELLS COUNTED % (AUTO) 100 %; WHITE BLOOD COUNT 15.1 10^3/uL (4.0-10.5)
[2018-04-03] MEDS ORDERED: POTASSIUM CHLORIDE 10 MEQ CAPSULE.ER PO ONE ×2 (02:00→12:30)
[2018-04-03 02:04] LABS: BLOOD UREA NITROGEN 16 mg/dL (7-20); CARBON DIOXIDE 26 mmol/L (22-30); CHLORIDE 105 mmol/L (98-107); GLUCOSE 140 mg/dL (75-110); POTASSIUM 3.1 mmol/L (3.6-5.0)
[2018-04-03 02:09] LABS: ANION GAP 5 (5-19); SODIUM 136.3 mmol/L (137-145)
[2018-04-03] MEDS: RINGERS SOLUTION,LACTATED 1,000 ML IV PRN (05:11)
[2018-04-03] MEDS: VANCOMYCIN HCL 1,500 MG in DEXTROSE 5%-WATER 250 ML IV SCH ×2 (05:11→18:17)
[2018-04-03] MEDS: HEPARIN SOD (PORCINE) 5,000 UNIT/ML 1 ML SYRINGE SUBCUT SCH ×3 (05:14→21:30)
[2018-04-03] MEDS ORDERED: CEFTRIAXONE 1 GM/D5W RTU 1 GM/50 ML RTUPB IV SCH (10:00)
[2018-04-03] MEDS ORDERED: BUDESONIDE/FORMOTEROL 160-4.5 MCG 60 PUFF/6 GM MDI IH SCH (10:00)
--- NOTE | 2018-04-03 10:58 | PDOC PROGRESS REPORT ---
Subjective Progress Note for:: 04/03/18 Subjective:: 62-year-old white male who had wound on the dorsum of his left hand secondary to multiple crabPitching. Developed cellulitis seen by orthopedics no an incision and drainage required as he was draining. Does not appear cultures were sent from the emergency room. Patient was given Rocephin started on doxycycline and vancomycin. White count 15,000. Erythema on the volar surface of the forearm extending above the elbow is decreasing in intensity. Swelling of the hand improved. Pain adequately controlled.Potassium 3.1 this morning Reason For Visit: HAND CELLULITIS Physical Exam Vital Signs: Temp Pulse Resp BP Pulse Ox 98.2 F 66 18 125/76 95 04/03/18 04:23 04/03/18 04:23 04/03/18 04:23 04/03/18 04:23 04/03/18 04:23 Intake & Output 04/02/18 04/03/18 04/04/18 06:59 06:59 06:59 Intake Total 1999 Balance 1999 Weight 112.6 kg General appearance: PRESENT: no acute distress, well-developed, well-nourished Head exam: PRESENT: atraumatic, normocephalic Eye exam: PRESENT: conjunctiva pink, EOMI, PERRLA. ABSENT: scleral icterus Neck exam: ABSENT: carotid bruit, JVD, lymphadenopathy, thyromegaly Respiratory exam: PRESENT: clear to auscultation jamilah. ABSENT: rales, rhonchi, wheezes Cardiovascular exam: PRESENT: RRR. ABSENT: diastolic murmur, rubs, systolic murmur Pulses: PRESENT: normal dorsalis pedis pul GI/Abdominal exam: PRESENT: normal bowel sounds, soft. ABSENT: distended, guarding, mass, organolmegaly, rebound, tenderness Extremities exam: PRESENT: calf tenderness, clubbing, pedal edema, tenderness - Left hand dressing in place. Erythema improved from yesterday edema improved no evidence of tenosynovitis. Neurological exam: PRESENT: alert, awake, CN II-XII grossly intact. ABSENT: motor sensory deficit Psychiatric exam: ABSENT: homicidal ideation, suicidal ideation Skin exam: PRESENT: dry, erythema - As described, intact, warm. ABSENT: cyanosis, rash Results Laboratory Results: 04/03/18 01:30 04/03/18 01:30 04/03/18 04/03/18 04/03/18 01:30 01:30 01:30 WBC 15.1 H RBC 4.55 Hgb 12.7 L Hct 37.9 MCV 83 MCH 28.0 MCHC 33.6 RDW 15.6 H Plt Count 201 Seg Neutrophils % 86.7 H Lymphocytes % 8.4 L Monocytes % 4.0 Eosinophils % 0.4 Basophils % 0.5 Absolute Neutrophils 13.1 H Absolute Lymphocytes 1.3 Absolute Monocytes 0.6 Absolute Eosinophils 0.1 Absolute Basophils 0.1 Sodium 136.3 L Potassium 3.1 L Chloride 105 Carbon Dioxide 26 Anion Gap 5 BUN 16 Creatinine 0.69 Est GFR ( Amer) > 60 Est GFR (Non-Af Amer) > 60 Glucose 140 H Calcium 9.0 Magnesium 1.8 Impressions: Hand X-Ray 04/02/18 00:46 FINDINGS/IMPRESSION: 4 mm radiopaque foreign body in the soft tissues surrounding the fourth and fifth digits. Diffuse soft tissue swelling of the left hand. Normal bone mineralization. No acute fracture or malalignment. Joint spaces are preserved. Assessment & Plan - Diagnosis (1) Cellulitis of left forearm Is this a current diagnosis for this admission?: Yes Plan: Continue vancomycin and doxycycline. Will add Rocephin for empiric coverage for vibrio vulnificus. Erythema on the forearm appears Improved Intensity decreasing area of lymphangitis extending above elbow now. Will monitor as going forward. CBC in a.m. (2) Cellulitis of left hand Is this a current diagnosis for this admission?: Yes Plan: Wound draining and currently dressed serous fluid expressed by orthopedics. Will have nursing send culture will obtain AFB Stain and culture to rule out Mycobacterium marinum.Cultures obtained are pending. (3) CAD (coronary artery disease) Qualifiers: Coronary Disease-Associated Artery/Lesion type: unspecified vessel or lesion type [place] vs. transplanted heart: [place] heart Associated angina: without angina Qualified Code(s): I25.10 - Atherosclerotic heart disease of [place] coronary artery without angina pectoris Is this a current diagnosis for this admission?: Yes Plan: No anginal complaints continue outpatient medications. (4) COPD (chronic obstructive pulmonary disease) Qualifiers: COPD type: COPD with acute exacerbation Qualified Code(s): J44.1 - Chronic obstructive pulmonary disease with (acute) exacerbation Is this a current diagnosis for this admission?: Yes Plan: No active disease at this time as needed nebulizers available. (5) Hypokalemia Is this a current diagnosis for this admission?: Yes Plan: 40 mEq p.o. now 20 mEq twice daily. Magnesium adequate BMP in a.m. - Time Time Spent with patient: 25-34 minutes Anticipated discharge: Home Within: within 48 hours
[2018-04-03] MEDS: CEFTRIAXONE SODIUM 1,000 MG in NORMAL SALINE 50 ML IV SCH (11:25)
[2018-04-03] MEDS: PAROXETINE HCL 20 MG TABLET PO SCH (11:26)
[2018-04-03] MEDS: DOCUSATE SODIUM 100 MG CAPSULE PO SCH ×2 (11:33→18:17)
[2018-04-03] MEDS: ISOSORBIDE DINITRATE 10 MG TABLET PO SCH (11:34)
[2018-04-03] MEDS: AMITRIPTYLINE HCL 10 MG TABLET PO SCH (11:34)
[2018-04-03] MEDS: FUROSEMIDE 40 MG TABLET PO SCH ×2 (11:35→18:17)
[2018-04-03] MEDS: SPIRONOLACTONE 25 MG TABLET PO SCH ×2 (11:35→18:40)
[2018-04-03] MEDS: NICOTINE 7 MG/24 HR PATCH.TD24 TD SCH ×2 (11:36→14:06)
[2018-04-03] MEDS: METOPROLOL TARTRATE 25 MG TABLET PO SCH ×2 (11:36→21:32)
[2018-04-03] MEDS: DOXYCYCLINE HYCLATE 100 MG in DEXTROSE 5%-WATER 250 ML IV SCH ×2 (14:04→21:32)
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
[2018-04-03] MEDS ORDERED: ZOLPIDEM TARTRATE 5 MG TABLET PO PRN (21:00)
[2018-04-03] MEDS: ATORVASTATIN CALCIUM 80 MG TABLET PO SCH (21:31)
[2018-04-03] MEDS: POTASSIUM CHLORIDE 10 MEQ CAPSULE.ER PO SCH (21:31)
[2018-04-03] MEDS ORDERED: POTASSIUM CHLORIDE 10 MEQ CAPSULE.ER PO SCH (22:00)
[2018-04-04] MEDS: HEPARIN SOD (PORCINE) 5,000 UNIT/ML 1 ML SYRINGE SUBCUT SCH (05:58)
[2018-04-04] MEDS: VANCOMYCIN HCL 1,500 MG in DEXTROSE 5%-WATER 250 ML IV SCH (05:59)
[2018-04-04] MEDS: RINGERS SOLUTION,LACTATED 1,000 ML IV PRN (06:03)
[2018-04-04 06:16] LABS: ABSOLUTE BASOPHILS # (AUTO) 0.1 10^3/uL (0.0-0.2); ABSOLUTE EOSINOPHILS # (AUTO) 0.1 10^3/uL (0.0-0.6); ABSOLUTE LYMPHOCYTES (AUTO) 1.5 10^3/uL (0.5-4.7); ABSOLUTE MONOCYTES (AUTO) 0.6 10^3/uL (0.1-1.4); ABSOLUTE NEUT (AUTO) 8.5 10^3/uL (1.7-8.2); BASOPHILS % (AUTO) 0.5 % (0-2); EOSINOPHILS % (AUTO) 0.5 % (0-6); HEMATOCRIT 38.6 % (37.9-51.0); LYMPHOCYTES % (AUTO) 13.8 % (13-45); MEAN CORPUSCULAR HEMOGLOBIN 28.2 pg (27.0-33.4); MEAN CORPUSCULAR HGB CONC 33.5 g/dL (32.0-36.0); MEAN CORPUSCULAR VOLUME 84 fl (80-97); MONOCYTES % (AUTO) 5.5 % (3-13); PLATELET COUNT 233 10^3/uL (150-450); RED CELL DISTRIBUTION WIDTH 15.7 % (11.5-14.0); SEGMENTED NEUTROPHILS % (AUTO) 79.7 % (42-78); TOTAL CELLS COUNTED % (AUTO) 100 %; WHITE BLOOD COUNT 10.7 10^3/uL (4.0-10.5)
[2018-04-04 06:41] LABS: VANCOMYCIN,TROUGH 16.1 ug/mL (5.0-20.0)
[2018-04-04 06:46] LABS: ANION GAP 7 (5-19); BLOOD UREA NITROGEN 14 mg/dL (7-20); CARBON DIOXIDE 31 mmol/L (22-30); CHLORIDE 102 mmol/L (98-107); GLUCOSE 112 mg/dL (75-110); POTASSIUM 3.1 mmol/L (3.6-5.0); SODIUM 139.6 mmol/L (137-145)
[2018-04-04 09:08] VITALS: BP 135/99
[2018-04-04] MEDS ORDERED: ISOSORBIDE MONONITRATE 30 MG TAB.ER.24H PO SCH (10:00)
[2018-04-04] MEDS: SPIRONOLACTONE 25 MG TABLET PO SCH (10:21)
[2018-04-04] MEDS: PAROXETINE HCL 20 MG TABLET PO SCH (10:22)
[2018-04-04] MEDS: DOCUSATE SODIUM 100 MG CAPSULE PO SCH (10:22)
[2018-04-04] MEDS: METOPROLOL TARTRATE 25 MG TABLET PO SCH (10:22)
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
[2018-04-04] MEDS: FUROSEMIDE 40 MG TABLET PO SCH (10:24)
[2018-04-04] MEDS: POTASSIUM CHLORIDE 10 MEQ CAPSULE.ER PO SCH (10:24)
[2018-04-04] MEDS: NICOTINE 7 MG/24 HR PATCH.TD24 TD SCH (10:24)
[2018-04-04] MEDS: AMITRIPTYLINE HCL 10 MG TABLET PO SCH (10:24)
[2018-04-04] MEDS: CEFTRIAXONE SODIUM 1,000 MG in NORMAL SALINE 50 ML IV SCH (10:25)
[2018-04-04] MEDS: DOXYCYCLINE HYCLATE 100 MG in DEXTROSE 5%-WATER 250 ML IV SCH (10:25)
== END 2018-04-04 12:10 | disposition home or self-care (01) | DRG 603 ==
LOC: ER 00:12 → EH 02:49 → 2S 15:27
PROVIDERS: ADMIT Internal Medicine; ATTEND Internal Medicine
DX: L03.114 Cellulitis of left upper limb (principal); J44.1 Chronic obstructive pulmonary disease with (acute) exacerbation; I25.10 Atherosclerotic heart disease of native coronary artery without angina pectoris; E87.6 Hypokalemia; G47.33 Obstructive sleep apnea (adult) (pediatric); I10 Essential (primary) hypertension; K21.9 Gastro-esophageal reflux disease without esophagitis; M19.90 Unspecified osteoarthritis, unspecified site; Z87.19 Personal history of other diseases of the digestive system; Z79.899 Other long term (current) drug therapy; F17.200 Nicotine dependence, unspecified, uncomplicated; Z88.0 Allergy status to penicillin
CPT/HCPCS: 36415; 80048; 80202; 83605; 83735; 85025; 87040; 87070; 87205; 96365; 99284; J0696; J1644; J3370; J3490; J7060

== ENCOUNTER 2018-04-26 08:15 | Day surgery (SDC) | payer BC ==
[~2018-04-26 08:15] MED LIST: KETOROLAC TROMETHAMINE 0.45% 4 DROP/0.4 ML DROPERETTE OS PRN
[2018-04-26] MEDS ORDERED: TOBRAMYCIN SULFATE/DEXAMETH OPH OINTMENT 3.5 GM ONE (08:36)
[2018-04-26] MEDS ORDERED: CHONDR SU A NA/HYALUR INTRAOC KIT (SURGICARE) ONE (08:36)
[2018-04-26] MEDS ORDERED: EPINEPHRINE INJ/PF 1 MG/1 ML AMPULE ONE (08:36)
[2018-04-26] MEDS ORDERED: LIDOCAINE 1% INJ-PF (10 MG/ML) 30 ML SDV ONE (08:36)
[2018-04-26] MEDS: BESIFLOXACIN HCL 0.6% OPH SUSP 5 ML BOTTLE OS PRN ×3 (08:45→09:40)
[2018-04-26] MEDS: TROPICAMIDE 1% OPH SOLN 3 ML OS PRN ×3 (08:45→09:08)
[2018-04-26] MEDS: CYCLOPENTOLATE 0.2%/PHENYLEPHRINE 1% OPH SOLN 2 ML OS PRN ×3 (08:45→09:08)
[2018-04-26] MEDS: TETRACAINE HCL 0.5% OPH SOLN 0.6 ML DROPERETTE OS PRN ×3 (08:45→09:32)
[2018-04-26] MEDS ORDERED: MIDAZOLAM 2 MG/2 ML INJ ONE (09:04)
[2018-04-26] MEDS ORDERED: FENTANYL CITRATE INJ/PF 100 MCG/2 ML AMPUL ONE (09:04)
[2018-04-26] MEDS ORDERED: ONDANSETRON HCL INJ/PF 4 MG/2 ML SDV ONE (09:04)
== END 2018-04-26 10:22 | disposition home or self-care (01) ==
LOC: SC 08:15
PROVIDERS: ATTEND Ophthalmology
DX: H25.12 Age-related nuclear cataract, left eye (principal); J44.9 Chronic obstructive pulmonary disease, unspecified; K21.9 Gastro-esophageal reflux disease without esophagitis; F17.210 Nicotine dependence, cigarettes, uncomplicated; G47.33 Obstructive sleep apnea (adult) (pediatric); I25.10 Atherosclerotic heart disease of native coronary artery without angina pectoris; I11.0 Hypertensive heart disease with heart failure; I49.9 Cardiac arrhythmia, unspecified; I50.9 Heart failure, unspecified; Z88.0 Allergy status to penicillin; Z79.899 Other long term (current) drug therapy; Z79.51 Long term (current) use of inhaled steroids
CPT/HCPCS: 66984; V2632; J2250; J3490 ×3; J0171; J3010; J2405; 142

== ENCOUNTER 2018-05-04 15:32 | Emergency (ER) | payer BC ==
[2018-05-04] MEDS ORDERED: HYDROMORPHONE HCL INJ/PF 2 MG/ML AMPULE IV ONE ×3 (16:24→19:09)
--- NOTE | 2018-05-04 16:29 | ER Document Report ---
ED General - General Chief Complaint: Knee Pain Stated Complaint: KNEE PAIN Time Seen by Provider: 05/04/18 16:11 Mode of Arrival: Medic Information source: Patient, Emergency Med Personnel, [facility] Records Notes: 62-year-old male with coronary artery disease, hypertension, COPD, chronic back pain presents with complaint of left hip and knee pain that started upon awakening. Patient states that last night he developed some pain in his hip but when he awoke this morning he was unable to walk or get out of bed. He denies any recent injury, prior similar symptoms of the hip. He states his pain is usually in his right low back. Patient does have a history of gout. He is currently in pain management for chronic back pain. He reports a recent myelogram. TRAVEL OUTSIDE OF THE [place] IN LAST 30 DAYS: No COUNTRY TRAVELED TO/FROM: cruise - [facility] Onset: This morning Onset/Duration: Sudden Quality of pain: Throbbing Severity: Moderate Associated symptoms: Body/muscle aches. denies: Chest pain, Chills, Fever, Nausea, Vomiting, Shortness of breath Exacerbated by: Movement, Walking Relieved by: Denies Similar symptoms previously: No Recently seen / treated by doctor: Yes - Related Data Allergies/Adverse Reactions: Penicillins Allergy (Verified 05/04/18 16:44) Past Medical History - General Information source: Patient, Relative, [facility] Records - Social History Smoking Status: Current Every Day Smoker Cigarette use (# per day): Yes - 20 Smoking Education Provided: Yes - Smoking cessation counseling was provided for 4 minutes at the bedside Frequency of alcohol use: None Drug Abuse: None Lives with: Spouse/Significant other Family History: CAD Patient has suicidal ideation: No Patient has homicidal ideation: No - Past Medical History Cardiac Medical History: Reports: Hx Coronary Artery Disease, Hx Hypertension Denies: Hx Heart Attack Pulmonary Medical History: Reports: Hx Asthma - COPD, Hx Bronchitis, Hx COPD, Hx Sleep Apnea Neurological Medical History: Denies: Hx Cerebrovascular Accident, Hx Seizures Renal/ Medical History: Denies: Hx Peritoneal Dialysis Malignancy Medical History: Reports Hx Prostate Cancer - Prostate cancer discovered last year, currently in observation status only GI Medical History: Reports: Hx Diverticulitis, Hx Gastroesophageal Reflux Disease, Hx Ulcer, Hx Colonoscopy, Hx Endoscopy. Denies: Hx Hepatitis, Hx Hiatal Hernia Musculoskeletal Medical History: Reports Hx Arthritis, Reports Hx Musculoskeletal Deformity, Reports Hx Musculoskeletal Trauma Psychiatric Medical History: Denies: Hx Depression Infectious Medical History: Denies: Hx Hepatitis Past Surgical History: Reports: Hx Orthopedic Surgery - R knee, R wrist, Hx Tonsillectomy. Denies: Hx Open Heart Surgery - STENTS, Hx Pacemaker - Immunizations Immunizations up to date: Yes Hx Diphtheria, Pertussis, Tetanus Vaccination: Yes Review of Systems - Review of Systems Notes: REVIEW OF SYSTEMS: CONSTITUTIONAL : Denies fever, chills, or sweats. Denies recent illness. Denies weight loss, recent hospitalizations. EENT: Denies visual changes, eye pain. Denies sore throat, oral lesions, difficulty swallowing. CARDIOVASCULAR: Denies chest pain. Denies palpitations. Denies lower extremity edema. RESPIRATORY: Denies cough. Denies shortness of breath, wheezing. GASTROINTESTINAL: Denies abdominal pain or distention. Denies nausea, vomiting , or diarrhea. Denies blood in vomitus, stools, or per rectum. Denies black, tarry stools. Denies constipation. GENITOURINARY: Denies difficulty urinating, painful urination, frequency, blood in urine, or vaginal discharge. MUSCULOSKELETAL: Denies neck pain or stiffness. SKIN: Denies rash, lesions or sores. HEMATOLOGIC : Denies easy bruising or bleeding. LYMPHATIC: Denies swollen glands. NEUROLOGICAL: Denies confusion or altered mental status. Denies loss of consciousness. Denies dizziness or lightheadedness. Denies headache. Denies weakness or paralysis. Denies problems difficulty with ambulation, slurred speech. Denies sensory loss, numbness, or tingling. Denies seizures. PSYCHIATRIC: Denies anxiety or stress. Denies depression, suicidal ideation, or homicidal ideation. Denies visual or auditory hallucinations. Physical Exam - Vital signs Vitals: BP Pulse Ox 136/85 H 97 05/04/18 15:40 05/04/18 15:40 Interpretation: Hypertensive. No: Febrile - Notes Notes: PHYSICAL EXAMINATION: GENERAL: Well-appearing, well-nourished and in no acute distress. HEAD: Atraumatic, normocephalic. EYES: Pupils equal round and reactive to light, extraocular movements intact, sclera anicteric, conjunctiva are normal. ENT: Nares patent, oropharynx clear without exudates. Moist mucous membranes. NECK: Normal range of motion, supple without lymphadenopathy LUNGS: Breath sounds clear to auscultation bilaterally and equal. No wheezes rales or rhonchi. HEART: Regular rate and rhythm without murmurs ABDOMEN: Soft, nontender, nondistended abdomen. No guarding, no rebound. No masses appreciated. Musculoskeletal: Pain with range of motion of the left lower extremity. Left knee with mild swelling but without erythema, warmth. NEUROLOGICAL: Cranial nerves grossly intact. Normal speech, normal gait. Normal sensory, motor exams PSYCH: Normal mood, normal affect. SKIN: Warm, Dry, normal turgor, no rashes or lesions noted. Course - Re-evaluation Re-evalutation: 05/05/18 02:56 Abdomen/Pelvis CT 05/04/18 16:24 IMPRESSION: There is a broad area of relatively mild inflammatory change in the fat associated with the jejunum. This is just adjacent to an apparent anastomosis. No free air is seen. Is the surgery recent? Knee X-Ray 05/04/18 16:26 IMPRESSION: Degenerative joint disease. There is a joint effusion. 62-year-old male with chronic back pain currently in pain management presents with complaint of left hip and left knee pain that started 1 day prior to arrival but worsened this morning upon awakening. Patient reports inability to bear weight on his left leg. Exam is significant for mild effusion of the left knee without associated erythema or warmth. X-ray of the knee does show treated joint disease and a small joint effusion. CTA of the abdomen and pelvis showed mild inflammatory change in the area of the jejunum and anastomosis. Patient does report recent gastric bypass and cholecystectomy. He denies any current abdominal pain. Patient was given multiple rounds of pain medication and although on reevaluation he states that the pain has not improved at all. I have low suspicion for septic joint being that the area is not red warm and patient can move his knee when prompted. requesting referral for rehabilitation. I explained to her that if the patient was interested in rehab I would need to speak to the hospitalist to see if he qualifies for admission and that will require 24-72 hours of being in the hospital before he could qualify. They declined. Patient was provided an [place] wrap, knee immobilizer, crutches temporarily until he can fill his prescription for a walker. I did advise the patient to ice the knee elevate when possible and follow-up with orthopedic surgery. Since the patient is in pain management no home-going medications were provided except for prednisone. Patient was evaluated and treated as appropriate for the patient's presenting symptoms and complaint, with consideration of any critical or life threatening conditions that may be associated with their obtained history and exam as noted above. All results were discussed with patient and copies of patient's imaging were provided to the patient. Patient provided the opportunity to ask questions, and express concerns. Patient was educated on treatments based on their presumed diagnosis as noted above. At this time we will discharge the patient with return precautions and follow-up recommendations. Verbal discharge instructions given a the bedside. Medication warnings reviewed. Patient is in agreement with this plan and has verbalized understanding of return precautions. After careful consideration I feel that that patient can be safely discharged from the emergency department, they were advised to followup with a primary care physician in 2-3 days. Dictation on this chart was performed using voice recognition software and may result in unintended grammatical, spelling, syntax or errors. 05/05/18 02:58 - Vital Signs Vital signs: Temp Pulse Resp BP Pulse Ox 98.0 F 82 20 133/78 H 99 05/04/18 20:11 05/04/18 20:11 05/04/18 20:11 05/04/18 20:11 05/04/18 20:11 - Diagnostic Test Radiology reviewed: Image reviewed, Reports reviewed Discharge - Discharge Clinical Impression: Effusion, left knee, Left hip pain Left knee pain Qualifiers: Chronicity: acute Qualified Code(s): M25.562 - Pain in left knee Chronic back pain Qualifiers: Back pain location: low back pain Back pain laterality: right Sciatica presence : unspecified whether sciatica present Qualified Code(s): M54.5 - Low back pain Condition: Good Disposition: HOME, SELF-CARE Instructions: Use of Crutches ([facility]), Ice & Elevation ([facility]), Suspected Internal Knee Injury ([facility]), Knee Effusion ([facility]), Sprained Knee ([facility]) Prescriptions: Prednisone [Deltasone 20 mg Tablet] 3 tab PO DAILY 5 Days #15 tablet Walker [Folding Walker] 1 each MC ASDIR PRN #1 each PRN Reason: Forms: Elevated Blood Pressure Referrals: SANIYA MENDEZ PA-C [Primary Care Provider] - Follow up as needed STACEY CALLAWAY MD [ACTIVE STAFF] - Follow up in 3-5 days
--- NOTE | 2018-05-04 17:43 | RADIOLOGY REPORT (SQ) ---
EXAM DESCRIPTION: CT ABD/PELVIS NO ORAL OR IV COMPLETED DATE/TIME: 05/04/2018 5:25 pm REASON FOR STUDY: pain . please go below hips left hip pain COMPARISON: 07/29/2016 TECHNIQUE: CT scan of the abdomen and pelvis performed without intravenous or oral contrast. Images reviewed with lung, soft tissue, and bone windows. Reconstructed coronal and sagittal MPR images revi ewed. All images stored on PACS. All CT scanners at this facility use dose modulation, iterative reconstruction, and/or weight based d osing when appropriate to reduce radiation dose to as low as reasonably achievable (ALARA). [facility]: Dose Right [facility]: CareDose [facility]: Dose Right [facility]: Teradose 4D [facility]: Smart [employer] RADIATION DOSE: CT Rad equipment meets quality standard of care and radiation dose reduction techniq ues were employed. CTDIvol: 17.4 mGy. DLP: 994 mGy-cm.mGy. LIMITATIONS: None. FINDINGS: LOWER CHEST: No significant findings. No nodules or infiltrates. NON-CONTRASTED LIVER, SPLEEN, ADRENALS: Evaluation limited by lack of IV contrast. No identified sign ificant masses. PANCREAS: No masses. No peripancreatic inflammatory changes. GALLBLADDER: Surgically absent. RIGHT KIDNEY AND URETER: No suspicious masses. Assessment limited by lack of IV contrast. No signif icant calcifications. No hydronephrosis or hydroureter. LEFT KIDNEY AND URETER: No suspicious masses. Assessment limited by lack of IV contrast. No signifi cant calcifications. No hydronephrosis or hydroureter. AORTA AND RETROPERITONEUM: No aneurysm. No retroperitoneal masses or adenopathy. BOWEL AND PERITONEAL CAVITY: Radiopaque suture is present in the jejunum on image 37. There is mild stranding in the fat in this area. See images 29 through 43. Occasional diverticula arise from S de scending colon APPENDIX: Normal. PELVIS, BLADDER, AND ABDOMINAL WALL:No abnormal masses. No free fluid. Bladder normal. BONES: No significant findings. OTHER: No other significant finding. IMPRESSION: There is a broad area of relatively mild inflammatory change in the fat associated with the jejunum. This is just adjacent to an apparent anastomosis. No free air is seen. Is the surgery recent? COMMENT: Quality ID # [id number]: Final reports with documentation of one or more dose reduction techniques (e.g., Automated exposure control, adjustment of the mA and/or kV according to patient size, use of iterative reconstruction technique) TECHNICAL DOCUMENTATION: JOB ID: [id number] [employer]- All Rights Reserved Reading location - IP/workstation name: [email or web address]
--- NOTE | 2018-05-04 17:45 | RADIOLOGY REPORT (SQ) ---
EXAM DESCRIPTION: KNEE LEFT 4 VIEW COMPLETED DATE/TIME: 05/04/2018 5:33 pm REASON FOR STUDY: pain COMPARISON: None. NUMBER OF VIEWS: Four views. TECHNIQUE: AP, lateral, and both oblique radiographic images acquired of the left knee. LIMITATIONS: None. FINDINGS: MINERALIZATION: Normal. BONES: No acute fracture or dislocation. No worrisome bone lesions. JOINT: There is a joint effusion. All the joint spaces are narrowed to some degree. Marginal osteop hytes are present. Posterior patellar and trochlear osteophytes are present. SOFT TISSUES: No soft tissue swelling. No radio-opaque foreign body. OTHER: No other significant finding. IMPRESSION: Degenerative joint disease. There is a joint effusion. TECHNICAL DOCUMENTATION: JOB ID: [id number] [employer]- All Rights Reserved Reading location - IP/workstation name: [email or web address]
[2018-05-04] MEDS ORDERED: DIAZEPAM 5 MG TABLET PO ONE (19:09)
[2018-05-04] MEDS ORDERED: PREDNISONE 20 MG TABLET PO ONE (19:25)
[2018-05-04 20:11] VITALS: BP 133/78
== END 2018-05-04 20:11 | disposition home or self-care (01) ==
LOC: ER 15:32
DX: M25.462 Effusion, left knee (principal); M25.552 Pain in left hip; M25.562 Pain in left knee; G89.29 Other chronic pain; M54.5 Low back pain; M79.10 Myalgia, unspecified site; I25.10 Atherosclerotic heart disease of native coronary artery without angina pectoris; I10 Essential (primary) hypertension; J44.9 Chronic obstructive pulmonary disease, unspecified; F17.210 Nicotine dependence, cigarettes, uncomplicated; Z88.0 Allergy status to penicillin
CPT/HCPCS: 96376; 99406; 99284; 96374; 73564; 74176; L1830; J1170; J7512

== ENCOUNTER 2018-09-05 14:34 | Emergency (ER) | payer BC ==
[2018-09-05 15:03] VITALS: BP 147/97
[2018-09-05] MEDS ORDERED: ASPIRIN 81 MG TABLET, CHEWABLE PO ONE (15:46)
--- NOTE | 2018-09-05 15:53 | ER Document Report ---
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 Patient reports recent chest pain, shortness of breath, left lower extremity swelling and palpitations. Patient does report that he had an ultrasound of his left lower extremity today which was negative for DVT. I have greeted and performed a rapid initial assessment of this patient. A comprehensive ED assessment and evaluation of the patient, analysis of test results and completion of medical decision making process we will be contacted by additional ED providers. PHYSICAL EXAMINATION: Vital signs reviewed GENERAL: Well-appearing, well-nourished and in no acute distress. LUNGS: Expiratory wheezing Musculoskeletal: Normal range of motion NEUROLOGICAL: Normal speech, normal gait. PSYCH: Normal mood, normal affect. SKIN: Warm, Dry, normal turgor, no rashes or lesions noted. TRAVEL OUTSIDE OF THE [place] IN LAST 30 DAYS: No COUNTRY TRAVELED TO/FROM: cruise - [facility] Onset: Other Onset/Duration: Sudden Quality of pain: Throbbing Severity: Moderate Associated Symptoms: Chest pain, Leg swelling, Shortness of breath Exacerbated by: Denies Relieved by: Denies Similar symptoms previously: Yes Recently seen / treated by doctor: Yes - Related Data Smoking: Cigarettes Frequency of alcohol use: None Drug Abuse: None Allergies/Adverse Reactions: Penicillins Allergy (Verified 09/05/18 14:39) Past Medical History - Social History Chew tobacco use (# tins/day): No Frequency of alcohol use: None Drug Abuse: None - Past Medical History Cardiac Medical History: Reports: Hx Coronary Artery Disease, Hx Hypertension Denies: Hx Heart Attack Pulmonary Medical History: Reports: Hx Asthma - COPD, Hx Bronchitis, Hx COPD, Hx Sleep Apnea Neurological Medical History: Denies: Hx Cerebrovascular Accident, Hx Seizures Renal/ Medical History: Denies: Hx Peritoneal Dialysis Malignancy Medical History: Reports Hx Prostate Cancer - Prostate cancer discovered last year, currently in observation status only GI Medical History: Reports: Hx Diverticulitis, Hx Gastroesophageal Reflux Disease, Hx Ulcer, Hx Colonoscopy, Hx Endoscopy. Denies: Hx Hepatitis, Hx Hiatal Hernia Musculoskeltal Medical History: Reports Hx Arthritis, Reports Hx Musculoskeletal Deformity, Reports Hx Musculoskeletal Trauma Psychiatric Medical History: Denies: Hx Depression Infectious Medical History: Denies: Hx Hepatitis Past Surgical History: Reports: Hx Orthopedic Surgery - R knee, R wrist, Hx Tonsillectomy. Denies: Hx Open Heart Surgery - STENTS, Hx Pacemaker - Immunizations Immunizations up to date: Yes Hx Diphtheria, Pertussis, Tetanus Vaccination: Yes History of Influenza Vaccine for 04/2017 - 09/2017 Season: Yes Influenza Administration Date for 04/2017 - 09/2017 Season: 06/17/17 Physical Exam - Vital signs Vitals: Temp Pulse Resp BP Pulse Ox 98.2 F 123 H 18 147/97 H 97 09/05/18 15:00 09/05/18 15:00 09/05/18 15:00 09/05/18 15:00 09/05/18 15:00 Course - Vital Signs Vital signs: Temp Pulse Resp BP Pulse Ox 98.2 F 123 H 18 147/97 H 97 09/05/18 15:00 09/05/18 15:00 09/05/18 15:00 09/05/18 15:00 09/05/18 15:00 Doctor's Discharge - Discharge Referrals: SANIYA MENDEZ PA-C [Primary Care Provider] - Follow up as needed
[2018-09-05 16:58] LABS: ABSOLUTE BASOPHILS # (AUTO) 0.1 10^3/uL (0.0-0.2); ABSOLUTE EOSINOPHILS # (AUTO) 0.1 10^3/uL (0.0-0.6); ABSOLUTE LYMPHOCYTES (AUTO) 1.5 10^3/uL (0.5-4.7); ABSOLUTE MONOCYTES (AUTO) 1.1 10^3/uL (0.1-1.4); BASOPHILS % (AUTO) 0.5 % (0-2); EOSINOPHILS % (AUTO) 0.9 % (0-6); HEMATOCRIT 52.1 % (37.9-51.0); HEMOGLOBIN 17.7 g/dL (13.5-17.0); MEAN CORPUSCULAR HEMOGLOBIN 29.5 pg (27.0-33.4); MEAN CORPUSCULAR HGB CONC 33.9 g/dL (32.0-36.0); MEAN CORPUSCULAR VOLUME 87 fl (80-97); MONOCYTES % (AUTO) 9.4 % (3-13); PLATELET COUNT 247 10^3/uL (150-450); RED CELL DISTRIBUTION WIDTH 17.1 % (11.5-14.0); SEGMENTED NEUTROPHILS % (AUTO) 76.2 % (42-78); TOTAL CELLS COUNTED % (AUTO) 100 %; WHITE BLOOD COUNT 11.8 10^3/uL (4.0-10.5)
[2018-09-05 17:26] LABS: ALANINE AMINOTRANSFERASE 83 U/L (21-72); ALBUMIN 4.8 g/dL (3.5-5.0); ALKALINE PHOSPHATASE 111 U/L (38-126); ANION GAP 11 (5-19); ASPARTATE AMINO TRANSFERASE 54 U/L (17-59); BILIRUBIN,DIRECT 0.5 mg/dL (0.0-0.4); BILIRUBIN,TOTAL 0.9 mg/dL (0.2-1.3); BLOOD UREA NITROGEN 22 mg/dL (7-20); CALCIUM 10.1 mg/dL (8.4-10.2); CARBON DIOXIDE 28 mmol/L (22-30); CHLORIDE 99 mmol/L (98-107); CREATINE KINASE 36 U/L (55-170); GLUCOSE 103 mg/dL (75-110); POTASSIUM 4.5 mmol/L (3.6-5.0); SODIUM 137.6 mmol/L (137-145); TOTAL PROTEIN 7.5 g/dL (6.3-8.2)
[2018-09-05 17:30] LABS: CREATINE KINASE MB 0.95 ng/mL (<4.55); TROPONIN I 0.015 ng/mL
--- NOTE | 2018-09-05 17:38 | EKG REPORT ---
SEVERITY:- OTHERWISE NORMAL ECG - SINUS TACHYCARDIA BORDERLINE LEFT AXIS DEVIATION : Confirmed by: Derick Cloud MD 05-Sep-2018 17:37:26
--- NOTE | 2018-09-05 18:09 | RADIOLOGY REPORT (SQ) ---
EXAM DESCRIPTION: CTA CHEST COMPLETED DATE/TIME: 09/05/2018 5:59 pm REASON FOR STUDY: Chest pain, shortness of breath COMPARISON: 11/15/2017 TECHNIQUE: CT scan of the chest performed using helical scanning technique with dynamic intravenous contrast injection. Images reviewed with lung, soft tissue and bone windows. Reconstructed coronal and sagittal MPR images reviewed. Additional 3 dimensional post-processing performed to develop Maximal Intensity Projection images (TX P). All images stored on PACS. All CT scanners at this facility use dose modulation, iterative reconstruction, and/or weight based d osing when appropriate to reduce radiation dose to as low as reasonably achievable (ALARA). [facility]: Dose Right [facility]: CareDose [facility]: Dose Right [facility]: Teradose 4D [facility]: [employer] CONTRAST TYPE AND DOSE: contrast/concentration: Isovue 350.00 mg/ml; Total Contrast Delivered: 78.0 ml; Total Saline Delivered: 103.0 ml Contrast bolus optimized for the pulmonary arteries. Not diagnostic for the aorta. RENAL FUNCTION: GFR > 60. RADIATION DOSE: CT Rad equipment meets quality standard of care and radiation dose reduction techniq ues were employed. CTDIvol: 23.1 - 29.8 mGy. DLP: 920 mGy-cm. . LIMITATIONS: None. FINDINGS: LUNGS AND PLEURA: No masses, infiltrates, or pneumothorax. No pleural effusions or pleura l calcifications. AORTA AND GREAT VESSELS: No aneurysm. Contrast bolus not optimized for the aorta. HEART: No pericardial effusion. Moderate to marked coronary artery calcifications. PULMONARY ARTERIES: No emboli visualized in the main pulmonary arteries or the segmental branches. HILAR AND MEDIASTINAL STRUCTURES: No identified masses or abnormal nodes. HARDWARE: None in the chest. UPPER ABDOMEN: No significant findings. Limited exam. THYROID AND OTHER SOFT TISSUES: No masses. No adenopathy. BONES: No acute or significant finding. 3D MIPS: Confirm above findings. OTHER: No other significant finding. IMPRESSION: No pulmonary emboli. Moderate to marked coronary artery calcification. COMMENT: Quality ID # [id number]: Final reports with documentation of one or more dose reduction techniques (e.g., Automated exposure control, adjustment of the mA and/or kV according to patient size, use of iterative reconstruction technique) TECHNICAL DOCUMENTATION: JOB ID: [id number] [employer]- All Rights Reserved Reading location - IP/workstation name: [email or web address]
== END 2018-09-05 19:37 | disposition left against medical advice (07) ==
LOC: ER 14:34
DX: R06.02 Shortness of breath (principal); I25.10 Atherosclerotic heart disease of native coronary artery without angina pectoris; I11.0 Hypertensive heart disease with heart failure; J44.9 Chronic obstructive pulmonary disease, unspecified
CPT/HCPCS: 36415; 71275; 80053; 82550; 82553; 84484; 85025; 93005; 93010; 99281

== ENCOUNTER 2020-05-17 08:42 | Emergency (ER) | payer BC, MEDICARE ==
[2020-05-17] MEDS ORDERED: DEXAMETHASONE SOD PHOS INJ 10 MG/1 ML VIAL IM ONE (10:12)
[2020-05-17] MEDS ORDERED: KETOROLAC TROMETHAMINE INJ/PF 30 MG/1 ML SDV IM ONE (10:12)
--- NOTE | 2020-05-17 10:13 | ER Document Report ---
ED General - General Chief Complaint: Back Pain Stated Complaint: BACK/LEG PAIN Time Seen by Provider: 05/17/20 09:55 Primary Care Provider: SANIYA MENDEZ PA-C [Primary Care Provider] - Follow up as needed AZAM MCKEON JR, DO [ACTIVE PROVISIONAL STAFF] - Follow up as needed TRAVEL OUTSIDE OF THE [place] IN LAST 30 DAYS: No - HPI Notes: 64-year-old male presents to the emergency room today for complaints of lower back pain that is radiating to his right hip that started 45 days ago. Patient denies any trauma or any recent falls. Patient reports he did have back surgery back in 2018 for a fusion to his lower spine. Patient did follow-up with a chiropractor who readjusted him but that did not help as much, tried [id number] Tylenol and Voltaren gel with some relief. Reports pain is 3 out of 5, throbbing and sharp. Better when he is laying down, worse when he is sitting. Denies fevers, chills, chest pain,palpitations, shortness of breath, dyspnea, nausea, vomiting, diarrhea, abdominal pain, hematuria,blurred vision, double vision, loss of vision, speech changes, LH, dizziness, syncope, headaches, wheezing, ST, URI, neck pain, weakness, bowel or bladder dysfunction, saddle anesthesia, numbness or tingling in bilateral upper or lower extremities equally, muscle paralysis, weakness in bilateral upper or lower extremities equally or rash. Denies IV drug use. - Related Data Allergies/Adverse Reactions: Penicillins Allergy (Verified 05/17/20 09:43) Past Medical History - General Information source: Patient - Social History Smoking Status: Current Every Day Smoker Chew tobacco use (# tins/day): No Frequency of alcohol use: None Drug Abuse: None Family History: CAD - Past Medical History Cardiac Medical History: Reports: Hx Coronary Artery Disease, Hx Hypertension Denies: Hx Heart Attack Pulmonary Medical History: Reports: Hx Asthma - COPD, Hx Bronchitis, Hx COPD, Hx Sleep Apnea Neurological Medical History: Denies: Hx Cerebrovascular Accident, Hx Seizures Renal/ Medical History: Denies: Hx Peritoneal Dialysis Malignancy Medical History: Reports Hx Prostate Cancer - Prostate cancer discovered last year, currently in observation status only GI Medical History: Reports: Hx Diverticulitis, Hx Gastroesophageal Reflux Disease, Hx Ulcer, Hx Colonoscopy, Hx Endoscopy. Denies: Hx Hepatitis, Hx Hiatal Hernia Musculoskeletal Medical History: Reports Hx Arthritis, Reports Hx Musculoskeletal Deformity, Reports Hx Musculoskeletal Trauma Psychiatric Medical History: Denies: Hx Depression Infectious Medical History: Denies: Hx Hepatitis Past Surgical History: Reports: Hx Open Heart Surgery - STENTS, Hx Orthopedic Surgery - R knee, R wrist, Hx Tonsillectomy. Denies: Hx Pacemaker - Immunizations Immunizations up to date: Yes Hx Diphtheria, Pertussis, Tetanus Vaccination: Yes Review of Systems - Review of Systems Constitutional: No symptoms reported EENT: No symptoms reported Cardiovascular: No symptoms reported Respiratory: No symptoms reported Gastrointestinal: No symptoms reported Genitourinary: No symptoms reported Male Genitourinary: No symptoms reported Musculoskeletal: See HPI Skin: No symptoms reported Hematologic/Lymphatic: No symptoms reported Neurological/Psychological: No symptoms reported Physical Exam - Notes Notes: MEDICATIONS: I agree with the patient medications as charted by the RN. ALLERGIES: I agree with the allergies as charted by the RN. PAST MEDICAL HISTORY/PAST SURGICAL HISTORY: Reviewed and agree as charted by RN. SOCIAL HISTORY: Reviewed and agree as charted by RN. FAMILY HISTORY: No significant familial comorbid conditions directly related to patient complaint EXAM: Reviewed vital signs as charted by RN. PHYSICAL EXAMINATION:reviewed vital signs by RN GENERAL: Well-appearing, well-nourished and in no acute distress. HEAD: Atraumatic, normocephalic. EYES: Pupils equal round and reactive to light, extraocular movements intact, sclera anicteric, conjunctiva are normal. ENT: Nares patent, oropharynx clear without exudates. Moist mucous membranes. NECK: Normal range of motion, supple without lymphadenopathy LUNGS: Breath sounds clear to auscultation bilaterally and equal. No wheezes rales or rhonchi. HEART: Regular rate and rhythm without murmurs ABDOMEN: Soft, nontender, nondistended abdomen. No guarding, no rebound. No masses appreciated. Musculoskeletal: Normal range of motion, no pitting or edema. No cyanosis. Pain with flexion and extension at 30 degrees, positive straight leg test on right. Normal hip rotation. DTR +2 in BLE equally. Strength 5 out of 5 both distally and proximally to bilateral lower extremities normal motor and sensory function in BLE equally. Distal pulses + 2 BLE equally. Noted paraspinal tenderness near L2 and L3. Strength 5 out of 5 in bilateral lower extremities equally. no spinal tenderness. No CVA tenderness bilaterally. Femoral pulses + 2 bilaterally and equally. No abrasions, scars, lacerations, ecchymosis of any recent trauma. normal gait. NEUROLOGICAL: Cranial nerves grossly intact. Normal speech, normal gait. Normal sensory, motor exams PSYCH: Normal mood, normal affect. SKIN: Warm, Dry, normal turgor, no rashes or lesions noted. Course - Re-evaluation Re-evalutation: 05/17/20 12:47 Afebrile vital stable no distress. Nurses notes reviewed. X-ray lumbar spine does show spondylosis without a bone lesion or fracture. Urinalysis unremarkable. Patient given 10 of Decadron and 60 mg Toradol IM. Patient states this did help his pain dramatically. Discussed with patient that he should take muscle relaxers, do not drive, drink or operate machinery while taking medication as it can cause sedation or impairment of cognitive function. Take anti-inflammatories as directed with food. Advised to follow-up with child specialist as well as primary care provider within the next 24 to 48 hours. After performing a Medical Screening Examination, I estimate there is L OW risk for EXPANDING OR RUPTURED ABDOMINAL AORTIC ANEURYSM, CAUDA EQUINA SYNDROME, EPIDURAL MASS ABSCESS OR LESION(S), OSTEOMYELITIS,PERSONAL HISTORY OF CANCER, IMMUNOSUPPERSSSION, HISTORY OF IV DRUG USE, FRACTURE, CORD COMPERSSION, CANCER, RETROPERITONEAL BLEED, SPINAL EPIDURAL HEMATOMA, or HERNIATED DISK CAUSING SEVERE SPINAL STENOSIS, thus I consider the discharge disposition reasonable. I have reevaluated this patient multiple times and no significant life threatening changes are noted. The patient and I have discussed the diagnosis and risks, and we agree with discharging home and close follow-up. We also discussed returning to the Emergency Department immediately if new or worsening symptoms occur with the understanding that symptoms and presentations can change. We have discussed the symptoms which are most concerning (e.g., saddle anesthesia, urinary or bowel incontinence or retention, changing or worsening pain) that necessitate immediate return. 05/17/20 12:49 Discharge - Discharge Clinical Impression: Lower back pain Condition: Stable Disposition: HOME, SELF-CARE Instructions: Low Back Pain ([facility]), Muscle Strain ([facility]), Oral Narcotic Medication ([facility]), Warm Packs ([facility]), Pain Medication Injection ([facility]), Stretching Exercises for the Back ([facility]) Additional Instructions: Your x-ray today was negative for any acute fracture or dislocation. Your urine today was completely normal, no blood in your urine. Please follow-up with the child specialist as well as your primary care provider within the next 24 to 48 hours. You were given a shot of Decadron which is a steroid and Toradol which is an anti-inflammatory. Please do not drive, drink alcohol or operate heavy machinery while taking muscle relaxers as it can cause sedation or impairment of cognitive function. Please take naproxen as directed. Return immediately for any new or worsening symptoms. Follow up with primary care provider, call tomorrow to make followup appointment. Prescriptions: Naproxen 500 mg PO BID #10 tablet Methocarbamol [Robaxin 500 mg Tablet] 500 mg PO QID PRN #15 tablet PRN Reason: Referrals: SANIYA MENDEZ PA-C [Primary Care Provider] - Follow up as needed AZAM MCKEON JR, [ACTIVE PROVISIONAL STAFF] - Follow up as needed
[2020-05-17 10:47] LABS: APPEARANCE,URINE SLIGHTLY-CLOUDY; BILIRUBIN,URINE NEGATIVE (NEGATIVE); COLOR,URINE YELLOW; GLUCOSE, URINE NEGATIVE (NEGATIVE); KETONES,URINE NEGATIVE (NEGATIVE); LEUKOCYTE ESTERASE,URINE NEGATIVE (NEGATIVE); NITRITE,URINE NEGATIVE (NEGATIVE); PROTEIN,URINE NEGATIVE (NEGATIVE); URINE SPECIFIC GRAVITY 1.009; UROBILINOGEN,URINE NEGATIVE mg/dL (<2.0)
--- NOTE | 2020-05-17 11:15 | RADIOLOGY REPORT (SQ) ---
EXAM DESCRIPTION: L SPINE WHOLE IMAGES COMPLETED DATE/TIME: 05/17/2020 11:02 am REASON FOR STUDY: LBP, + straight leg test on right COMPARISON: None. NUMBER OF VIEWS: Five views including obliques. TECHNIQUE: AP, lateral, oblique, and sacral radiographic images acquired of the lumbar spine. LIMITATIONS: None. FINDINGS: MINERALIZATION: Normal. SEGMENTATION: Normal. No transitional anatomy. ALIGNMENT: Grade 1 anterolisthesis L3 relative to L2. VERTEBRAE: Maintained height. No fracture or worrisome bone lesion. DISCS: Multilevel disc space narrowing with osteophytes. POSTERIOR ELEMENTS: Pedicles and facets are intact. No pars defect or posterior arch defects. Facet arthropathy is present. HARDWARE: Anterior and posterior fusion L4-5. PARASPINAL SOFT TISSUES: Normal. PELVIS: Intact as visualized. No fractures or worrisome bone lesions. SI joints intact. OTHER: No other significant finding. IMPRESSION: SPONDYLOSIS WITHOUT BONE LESION OR FRACTURE. TECHNICAL DOCUMENTATION: JOB ID: [id number] [email or web address]- All Rights Reserved Reading location - IP/workstation name: [email or web address]
== END 2020-05-17 12:07 | disposition home or self-care (01) ==
LOC: ER 08:42
DX: M47.816 Spondylosis without myelopathy or radiculopathy, lumbar region (principal); F17.200 Nicotine dependence, unspecified, uncomplicated; I25.10 Atherosclerotic heart disease of native coronary artery without angina pectoris; I10 Essential (primary) hypertension; J44.9 Chronic obstructive pulmonary disease, unspecified; Z98.1 Arthrodesis status; Z95.5 Presence of coronary angioplasty implant and graft; Z88.0 Allergy status to penicillin
CPT/HCPCS: 99284; 96372; 81001; 72110; J1885; J1100

== ENCOUNTER 2020-05-19 14:00 | Emergency (ER) | payer MEDICARE ==
[2020-05-19 14:07] VITALS: BP 124/99
[2020-05-19] MEDS ORDERED: HYDROCODONE/ACETAMINOPHEN 5-325 MG TABLET PO ONE (14:22)
[2020-05-19] MEDS ORDERED: DEXAMETHASONE SOD PHOS INJ 10 MG/1 ML VIAL IM ONE (14:22)
[2020-05-19] MEDS ORDERED: KETOROLAC TROMETHAMINE INJ/PF 30 MG/1 ML SDV IM ONE (14:22)
--- NOTE | 2020-05-19 14:26 | ER Document Report ---
ED Neck/Back Problem - General Chief Complaint: Back Pain Stated Complaint: BACK PAIN Time Seen by Provider: 05/19/20 14:15 Primary Care Provider: SNAIYA MENDEZ PA-C [Primary Care Provider] - Follow up as needed LETY HERNANDEZ MD [ASSOCIATE] - Follow up as needed Mode of Arrival: Ambulatory Information source: Patient Notes: 64-year-old male presented to ED for complaint of right-sided back pain. He states he injured his back on Tuesday has had previous back surgeries. He states he came into the emergency room and saw someone and got a steroid shot and a Toradol shot and was given prescriptions for naproxen and muscle relaxers. He states he is still in pain. He states he does have a appointment with his back surgeon on May 27 but is in pain right now. Will repeat the Decadron and Toradol injection and give him 1 [place] while in the emergency room. Constitutional: Negative for fever. HENT: Negative for sore throat. Eyes: Negative for visual changes. Cardiovascular: Negative for chest pain. Respiratory: Negative for shortness of breath. Gastrointestinal: Negative for abdominal pain, vomiting or diarrhea. Genitourinary: Negative for dysuria. Musculoskeletal: Low back pain right side radiating down the right leg no new injury since last visit. Skin: Negative for rash. Neurological: Negative for headaches, weakness or numbness. 10 point ROS negative except as marked above and in HPI. PHYSICAL EXAMINATION: GENERAL: Well-appearing, well-nourished and in no acute distress. HEAD: Atraumatic, normocephalic. EYES: Pupils equal round extraocular movements intact, conjunctiva are normal. ENT: Nares patent NECK: Normal range of motion LUNGS: No respiratory distress Musculoskeletal: Normal range of motion tenderness to the right side of the low back radiating down the right leg sometimes to the foot full range of motion for ambulation NEUROLOGICAL: Normal speech, normal gait. PSYCH: Normal mood, normal affect. SKIN: Warm, Dry, normal turgor, no rashes or lesions noted. TRAVEL OUTSIDE OF THE [place] IN LAST 30 DAYS: No - HPI Patient complains to provider of: Lower back Onset: Other - Chronic intermittent Onset: Chronic Timing: Waxing and waning Quality of pain: Burning Severity: Mild Pain Level: 2 Context: Bending Recent injury: Possibly Associated symptoms: Like prior neck/back pain, Radiation to leg, Lower back pain Exacerbated by: Nothing Relieved by: Nothing Similar symptoms previously: Yes Recently seen / treated by doctor: Yes - Related Data Allergies/Adverse Reactions: Penicillins Allergy (Verified 05/17/20 09:43) Past Medical History - General Information source: Patient - Social History Smoking Status: Current Every Day Smoker Cigarette use (# per day): Yes - ppd Chew tobacco use (# tins/day): No Drug Abuse: None Lives with: Family Family History: CAD Patient has homicidal ideation: No - Past Medical History Cardiac Medical History: Reports: Hx Coronary Artery Disease, Hx Hypertension Pulmonary Medical History: Reports: Hx Asthma - COPD, Hx Bronchitis, Hx COPD, Hx Sleep Apnea EENT Medical History: Reports: None Neurological Medical History: Reports: None Endocrine Medical History: Reports: None Renal/ Medical History: Reports: None Malignancy Medical History: Reports Hx Prostate Cancer - Prostate cancer di scovered last year, currently in observation status only GI Medical History: Reports: Hx Diverticulitis, Hx Gastroesophageal Reflux Disease, Hx Ulcer, Hx Colonoscopy, Hx Endoscopy. Denies: Hx Hepatitis, Hx Hiatal Hernia Musculoskeletal Medical History: Reports Hx Arthritis, Reports Hx Musculoskeletal Deformity, Reports Hx Musculoskeletal Trauma Skin Medical History: Reports None Psychiatric Medical History: Reports: None Traumatic Medical History: Reports: None Infectious Medical History: Reports: None Past Surgical History: Reports: Hx Cholecystectomy, Hx Coronary Stent, Hx Gastric Bypass Surgery, Hx Orthopedic Surgery - l knee, l wrist back, artificial shoulder, Hx Tonsillectomy. Denies: Hx Pacemaker - Immunizations Immunizations up to date: Yes Hx Diphtheria, Pertussis, Tetanus Vaccination: Yes History of Influenza Vaccine for 04/2019 - 09/2019 Season: Yes - mar 2020 Physical Exam - Vital signs Vitals: Temp Pulse Resp BP Pulse Ox 98.5 F 60 18 124/99 H 97 05/19/20 14:07 05/19/20 14:07 05/19/20 14:07 05/19/20 14:07 05/19/20 14:07 Course - Re-evaluation Re-evalutation: 05/19/20 14:31 After performing a Medical Screening Examination, I estimate there is LOW risk for EXPANDING OR RUPTURED ABDOMINAL AORTIC ANEURYSM, CAUDA EQUINA SYNDROME, EPIDURAL MASS LESION, or HERNIATED DISK CAUSING SEVERE SPINAL STENOSIS, thus I consider the discharge disposition reasonable. I have reevaluated this patient multiple times and no significant life threatening changes are noted. The patient and I have discussed the diagnosis and risks, and we agree with discharging home and close follow-up. We also discussed returning to the Emergency Department immediately if new or worsening symptoms occur with the understanding that symptoms and presentations can change. We have discussed the symptoms which are most concerning (e.g., saddle anesthesia, urinary or bowel incontinence or retention, changing or worsening pain) that necessitate immediate return. 05/19/20 14:37 Blood pressure 135/73, oxygen sat 100%, pulse 56, respirations 20 at discharge - Vital Signs Vital signs: Temp Pulse Resp BP Pulse Ox 98.5 F 60 18 124/99 H 97 05/19/20 14:07 05/19/20 14:07 05/19/20 14:07 05/19/20 14:07 05/19/20 14:07 Discharge - Discharge Clinical Impression: Back pain Qualifiers: Back pain location: low back pain Chronicity: chronic Back pain laterality: right Sciatica presence: with sciatica Sciatica laterality: sciatica of right side Qualified Code(s): M54.41 - Lumbago with sciatica, right side Condition: Stable Disposition: HOME, SELF-CARE Additional Instructions: Chronic Back Pain Chronic back pain (pain persisting longer than three months) is a common problem. A medical evaluation can look for herniated disc, arthritis, osteoporosis, tumors, and infections. But at least half the time, there's no o bvious treatable cause. Anxiety and depression tend to worsen back pain. Ibuprofen or other anti-inflammatory medicine can help. A heating pad, used for 15-20 minutes at a time, can ease pain. For this type of back pain, narcotic medicines should be avoided. Muscle relaxers are rarely helpful unless you're having spasms. Activity is important. Find an aerobic exercise program that your back can tolerate. Too much rest makes back pain worse. Specific back exercises are usually prescribed to strengthen the back and abdominal muscles. Often, a physical therapist can help. Avoid heavy lifting, working while bent over, or standing with both knees straight. Most back pain patients do better with a firm mattress. If new symptoms of a "herniated disc" (radiation of pain, numbness, or tingling down the back of the leg or weakness in the leg) occur, you should be re-examined. Chronic Pain Control Stress, inactivity, and depression make pain more severe regardless of the cause of the pain. Stress and poor physical condition can cause pain such as headaches and backache. Relaxation: Rest in a quiet place with your eyes closed for 20 minutes twice daily. Concentrate on a pleasant image, or simply "feel" your breathing. Clear your mind. Stress management: Deal with your "stressors." Either take action, or eliminate the stressor from your life. Don't let things hang over you. Accept those things you can't change. Nutrition: Eat small, balanced meals -- don't skip, don't overeat. Meals should be high-carbohydrate, low-sugar, low-fat. Exercise: Exercise helps painful conditions and eases stress. Get 30 minutes of moderate exercise, five days a week. Do an activity that does not flare your pain. Precautions: Pain which continues to disrupt daily activities, or which changes in nature, requires a medical evaluation. Pain Clinic referral is available. We do not manage chronic pain in the Emergency Department. We will try to appropriately help you through an acute flare of your chronic painful condition, but for on-going chronic pain that does not improve, you will need to see your private doctor or ceramic painter. We do not provide repeated medication management of chronic painful conditions. If you wish, we can provide the name of local pain management physicians. ORAL NARCOTIC MEDICATION: You have been given a norco for pain control. This medication is a narcotic. It's best taken with food, as nausea can result if taken on an empty stomach. Don't operate machinery or drive within six hours of taking this medication. Do not combine this medicine with alcohol, or with any medication which can cause sedation (such as cold tablets or sleeping pills) unless you get permission from the physician. Narcotics tend to cause constipation. If possible, drink plenty of fluids and eat a diet high in fiber and fruits. Please be aware that prescription narcotics also have the potential for abuse. People become addicted to these medications because of the general sense of wellbeing that they induce. This feeling along with a significant reduction in tension, anxiety, and aggression provides a stimulating seductive quality to these drugs. Once your pain is under control, we encourage you to discard your unused narcotics. ICE PACKS: Apply ice packs frequently against the painful area. Many different schedules are recommended, such as "20 minutes on, 20 minutes off" or "one hour ice, two hours rest." If you need to work, you may need to go longer between ice treatments. You should plan to have the area ice packed AT LEAST one fourth of the time. The ice should be applied over the wrap, tape, or splint, or over a layer of cloth -- not directly against the skin. Some ice bags have a built-in cloth and can be put directly on the skin. WARM PACKS: After approximately two days, apply gentle heat (such as a heating pad or hot water bottle) for about 20 to 30 minutes about every two hours -- at least four times daily. Warmth and elevation will help you make a more rapid recovery, and will ease the pain considerably. Do not use HOT heat, and never apply heat for longer than 30 minutes. The continuous heat can invisibly damage skin and muscles -- even when no burn is seen on the surface. Damaged muscles can make you MORE sore. FOLLOW-UP CARE: If you have been referred to a physician for follow-up care, call the physicians office for an appointment as you were instructed or within the next two days. If you experience worsening or a significant change in your symptoms, notify the physician immediately or return to the Emergency Department at any time for re-evaluation. Forms: Elevated Blood Pressure Referrals: SANIYA MENDEZ PA-C [Primary Care Provider] - Follow up as needed LETY HERNANDEZ MD [ASSOCIATE] - Follow up as needed
[2020-05-19] MEDS ORDERED: DEXAMETHASONE SOD PHOSPHATE INJ 4 MG/1 ML VIAL IM ONE (15:00)
== END 2020-05-19 14:48 | disposition home or self-care (01) ==
LOC: ER 14:00
DX: G89.29 Other chronic pain (principal); M54.41 Lumbago with sciatica, right side; F17.210 Nicotine dependence, cigarettes, uncomplicated; I25.10 Atherosclerotic heart disease of native coronary artery without angina pectoris; I10 Essential (primary) hypertension; J44.9 Chronic obstructive pulmonary disease, unspecified; Z98.84 Bariatric surgery status; Z88.0 Allergy status to penicillin
CPT/HCPCS: 99284; 96372; J1100; J1885; A9270

== ENCOUNTER 2020-06-04 22:05 | Emergency (ER) | payer MEDICARE ==
--- NOTE | 2020-06-05 01:08 | ER Document Report ---
ED General - General Chief Complaint: Shortness Of Breath Stated Complaint: SHORTNESS OF BREATH Time Seen by Provider: 06/05/20 00:22 Primary Care Provider: SANIYA MENDEZ PA-C [Primary Care Provider] - Follow up as needed TRAVEL OUTSIDE OF THE [place] IN LAST 30 DAYS: No - HPI Notes: Patient is a 64-year-old male with a past medical history of COPD and prostate cancer who presents with rhinorrhea and nausea. Patient states he was tested for COVID-19 yesterday but does not know the results. He states he has lost his sense of taste and smell. He denies any vomiting. No abdominal pain. He has a chronic cough that is not new. No fevers or chills. Patient denies any shortn ess of breath. He states he had a friend who from COVID-19 so he is very concerned and his wanted him to get checked out. He has not been exposed to anyone with known COVID-19. - Related Data Allergies/Adverse Reactions: Penicillins Allergy (Verified 05/17/20 09:43) Past Medical History - General Information source: Patient - Social History Smoking Status: Unknown if Ever Smoked Family History: CAD - Past Medical History Cardiac Medical History: Reports: Hx Coronary Artery Disease, Hx Hypertension Denies: Hx Heart Attack Pulmonary Medical History: Reports: Hx Asthma - COPD, Hx Bronchitis, Hx COPD, Hx Sleep Apnea Neurological Medical History: Denies: Hx Cerebrovascular Accident, Hx Seizures Renal/ Medical History: Denies: Hx Peritoneal Dialysis Malignancy Medical History: Reports Hx Prostate Cancer - Prostate cancer discovered last year, currently in observation status only GI Medical History: Reports: Hx Diverticulitis, Hx Gastroesophageal Reflux Disease, Hx Ulcer, Hx Colonoscopy, Hx Endoscopy. Denies: Hx Hepatitis, Hx H iatal Hernia Musculoskeletal Medical History: Reports Hx Arthritis, Reports Hx Musculoskeletal Deformity, Reports Hx Musculoskeletal Trauma Psychiatric Medical History: Denies: Hx Depression Infectious Medical History: Denies: Hx Hepatitis Past Surgical History: Reports: Hx Cholecystectomy, Hx Coronary Stent, Hx Gastric Bypass Surgery, Hx Open Heart Surgery - STENTS, Hx Orthopedic Surgery - l knee, l wrist back, artificial shoulder, Hx Tonsillectomy. Denies: Hx Pacemaker - Immunizations Immunizations up to date: Yes Hx Diphtheria, Pertussis, Tetanus Vaccination: Yes Review of Systems - Review of Systems Notes: CONSTITUTIONAL: No fever, fatigue or weight loss. SKIN: No rash. HENT: No congestion, ear pain, or sore throat. Positive for rhinorrhea. EYES: No recent vision problems or eye pain. ENDOCRINE: No thyroid problems. No polyuria or polydipsia. CARDIOVASCULAR: No chest pain or edema. RESPIRATORY: No shortness of breath, congestion, or wheezing. Chronic cough. GASTROINTESTINAL: No abdominal pain, vomiting, bloody stools or diarrhea. Positive for nausea. GENITOURINARY: No dysuria. MUSCULOSKELETAL: No joint pain or swelling. NEUROLOGIC: No seizures. No headache, focal weakness or sensory changes. HEMATOLOGIC: No unusual bruising or bleeding. PSYCHIATRIC: No depression or anxiety. Physical Exam - Vital signs Vitals: Temp Pulse Resp BP Pulse Ox 98.0 F 65 16 122/75 97 06/04/20 22:35 06/04/20 22:35 06/04/20 22:35 06/04/20 22:35 06/04/20 22:35 - General General appearance: Appears well Notes: VITAL SIGNS: Within normal limits. GENERAL: No acute distress, non-toxic appearance. HEAD: Normal with no signs of head trauma. EYES: EOMI, conjunctiva normal, no discharge. EARS: Hearing grossly intact. NECK: Normal range of motion, no tenderness, supple, no lymphadenopathy, No adenopathy, no JVD. CHEST: Scant wheezes. CARDIAC: Regular rate and rhythm. S1 and S2, without murmurs, gallops, or rubs. VASCULAR: No Edema. ABDOMEN: Normal and soft with no tenderness, no masses or pulsatile masses. GENITOURINARY: Normal, No tenderness MUSCULOSKELETAL: Good range of motion of all major joints. Extremities without clubbing, cyanosis or edema. NEUROLOGICAL: Alert and oriented x 3. No focal sensory or strength deficits. Speech normal. Follows commands appropriately. PSYCHIATRIC: Normal Affect, judgement and mood. SKIN: Normal appearance with no rashes or lesions. Course - Re-evaluation Re-evalutation: 06/05/20 01:06 He was already tested for COVID-19. His testing is pending from the outpatient testing site. He is denying any symptoms of nausea currently. He is not short of breath. I will check basic labs and a chest x-ray. Patient's work-up is reassuring. He is not short of breath. His vitals are within normal limits. I discussed all this with the patient. He was instructed to isolate until he is called with a negative result. Patient requested a Toradol shot for his chronic back pain. He was instructed to follow-up with his PCP and return for any worsening symptoms. Likely, this is a viral illness. 06/05/20 06:08 - Vital Signs Vital signs: Temp Pulse Resp BP Pulse Ox 98.0 F 60 20 135/85 H 97 06/05/20 03:14 06/05/20 03:14 06/05/20 03:14 06/05/20 03:14 06/05/20 03:14 - Laboratory Result Diagrams: 06/05/20 01:45 06/05/20 01:45 Laboratory results interpreted by me: 06/05/20 06/05/20 01:45 01:45 RDW 15.1 H Plt Count 136 L Sodium 135.9 L BUN 23 H ALT 73 H Total Protein 5.5 L Albumin 3.2 L - Diagnostic Test Radiology reviewed: Image reviewed, Reports reviewed - EKG Interpretation by Me EKG shows normal: Sinus rhythm Rate: Normal Rhythm: NSR When compared to previous EKG there are: Previous EKG unavailable Additional EKG results interpreted by me: 06/05/20 06:09 Normal sinus rhythm. QTc 444. No acute ST changes. Previous EKG unavailable. Discharge - Discharge Clinical Impression: Nausea, Rhinorrhea Condition: Stable Disposition: HOME, SELF-CARE Instructions: COVID-19 Guidance for Persons Under Investigation, Sore Throat ([facility]) Additional Instructions: Please follow-up with your family doctor. Please self isolate until you are called with a negative Covid result. Return to the ER for any worsening symptoms. Referrals: SANIYA MENDEZ PA-C [Primary Care Provider] - Follow up as needed
--- NOTE | 2020-06-05 01:37 | RADIOLOGY REPORT (SQ) ---
EXAM DESCRIPTION: X-RAY CHEST- One View CLINICAL HISTORY: Viral symptoms COMPARISON: None available. TECHNIQUE: Single view of the chest. FINDINGS: There are no discrete air space infiltrates, pneumothoraces or pleural effusions. The pulmonary vascularity is normal. The cardiomediastinal silhouette is normal in size. Patient is status post left shoulder arthroplasty. IMPRESSION: No pulmonary opacities identified. Please note that chest radiographs have low sensitivity for subtle groundglass opacities.
[2020-06-05 01:58] LABS: ABSOLUTE BASOPHILS # (AUTO) 0.1 10^3/uL (0.0-0.2); ABSOLUTE EOSINOPHILS # (AUTO) 0.2 10^3/uL (0.0-0.6); ABSOLUTE LYMPHOCYTES (AUTO) 1.8 10^3/uL (0.5-4.7); ABSOLUTE MONOCYTES (AUTO) 0.5 10^3/uL (0.1-1.4); ABSOLUTE NEUT (AUTO) 5.2 10^3/uL (1.7-8.2); BASOPHILS % (AUTO) 1.1 % (0-2); EOSINOPHILS % (AUTO) 2.5 % (0-6); HEMATOCRIT 42.9 % (37.9-51.0); HEMOGLOBIN 14.3 g/dL (13.5-17.0); LYMPHOCYTES % (AUTO) 22.9 % (13-45); MEAN CORPUSCULAR HEMOGLOBIN 30.6 pg (27.0-33.4); MEAN CORPUSCULAR HGB CONC 33.5 g/dL (32.0-36.0); MEAN CORPUSCULAR VOLUME 91 fl (80-97); MONOCYTES % (AUTO) 6.9 % (3-13); PLATELET COUNT 136 10^3/uL (150-450); RED BLOOD COUNT 4.69 10^6/uL (4.35-5.55); RED CELL DISTRIBUTION WIDTH 15.1 % (11.5-14.0); SEGMENTED NEUTROPHILS % (AUTO) 66.6 % (42-78); TOTAL CELLS COUNTED % (AUTO) 100 %; WHITE BLOOD COUNT 7.8 10^3/uL (4.0-10.5)
[2020-06-05 02:10] LABS: ALBUMIN 3.2 g/dL (3.5-5.0); ALKALINE PHOSPHATASE 107 U/L (38-126); ANION GAP 5 (5-19); ASPARTATE AMINO TRANSFERASE 40 U/L (17-59); BILIRUBIN,DIRECT 0.2 mg/dL (0.0-0.4); BILIRUBIN,TOTAL 0.4 mg/dL (0.2-1.3); BLOOD UREA NITROGEN 23 mg/dL (7-20); CALCIUM 8.9 mg/dL (8.4-10.2); CARBON DIOXIDE 28 mmol/L (22-30); CHLORIDE 103 mmol/L (98-107); GLUCOSE 93 mg/dL (75-110); POTASSIUM 4.5 mmol/L (3.6-5.0); TOTAL PROTEIN 5.5 g/dL (6.3-8.2)
[2020-06-05] MEDS ORDERED: KETOROLAC TROMETHAMINE 60 MG/2 ML SDV IM ONE (03:02)
[2020-06-05 03:15] VITALS: BP 135/85
--- NOTE | 2020-06-05 08:33 | EKG REPORT ---
SEVERITY:- OTHERWISE NORMAL ECG - SINUS RHYTHM BORDERLINE LEFT AXIS DEVIATION : Confirmed by: Bonita Foote MD 05-Jun-2020 08:32:37
== END 2020-06-05 03:14 | disposition home or self-care (01) ==
LOC: ER 22:05
DX: R11.0 Nausea (principal); J34.89 Other specified disorders of nose and nasal sinuses; R43.8 Other disturbances of smell and taste; J44.9 Chronic obstructive pulmonary disease, unspecified; R05 Cough; M54.9 Dorsalgia, unspecified; G89.29 Other chronic pain; I25.10 Atherosclerotic heart disease of native coronary artery without angina pectoris; I10 Essential (primary) hypertension; Z85.46 Personal history of malignant neoplasm of prostate; Z98.84 Bariatric surgery status; Z95.5 Presence of coronary angioplasty implant and graft; Z88.0 Allergy status to penicillin; Z20.828 Contact with and (suspected) exposure to other viral communicable diseases
CPT/HCPCS: 93005; 99285; 96372; 36415; 85025; 80053; 84484; 71045; 93010; J1885